=== PATIENT | male | born 1970 | race Caucasian/White ===

== ENCOUNTER 2018-06-08 20:11 | Emergency (ER) | payer SELFPAY ==
[2018-06-08 21:19] LABS: Absolute Lymphocytes (CBC) 3.7 K/uL (0.7-4.9); Absolute Monocytes 0.4 K/uL (0.1-1.3); Absolute Neutrophil 5.1 K/uL (1.8-8.0); Eosinophils % 1.4 % (0-4.4); Hematocrit 42.3 % (39.6-49.0); Lymphocytes % 39.2 % (15.3-44.8); MCH 30.7 pg (27.0-35.0); MCV 88.7 fL (80-100); MPV 9.7 fL (7.6-11.3); Monocytes % 4.7 % (3.3-12.3); RBC Red Blood Cell Count 4.77 M/uL (4.33-5.43)
[2018-06-08 21:31] LABS: Magnesium 1.9 mg/dL (1.8-2.4); Potassium 4.5 mmol/L (3.5-5.1)
[2018-06-08 21:33] LABS: Protime INR 0.98
[2018-06-08] MEDS ORDERED: DEXAMETHASONE 10 MG/ML VIAL ONE (22:09)
[2018-06-08] MEDS ORDERED: METOCLOPRAMIDE 10 MG/2mL INJ ONE (22:09)
[2018-06-08] MEDS ORDERED: DIPHENHYDRAMINE 50 MG/ML VIAL ONE (22:09)
[2018-06-08] MEDS ORDERED: NA CHLORIDE 0.9% 500 ML ONE (22:09)
[2018-06-08] MEDS ORDERED: ONDANSETRON 4 MG/2 ML VIAL ONE (22:09)
--- NOTE | 2018-06-08 22:13 | RAD REPORT ---
EXAM DESCRIPTION: CT - [id number] - 06/08/2018 9:20 pm CLINICAL HISTORY: Trip and fall, head and neck injury, dizziness, nausea COMPARISON: CT cervical spine April 2009 TECHNIQUE: Axial 5 mm thick images of the head were obtained. Axial 2 mm thick images of the cervic al spine were obtained with sagittal and coronal reconstruction images generated and reviewed. All CT scans are performed using dose optimization technique as appropriate and may include automated exposure control or mA/KV adjustment according to patient size. FINDINGS: No intracranial hemorrhage, mass, edema or acute intracranial finding. No suspicion for ac [place] infarction. No extra-axial fluid collections. Mastoid air cells and paranasal sinuses are clear. No globe or orbit abnormality seen. Cervical body height and alignment are normal. No disk space narrowing. No fracture or acute bony abn ormality. No paraspinal mass or hematoma. IMPRESSION: Negative CT head examination for acute or significant finding. Negative CT cervical spine examination for acute or significant finding.
--- NOTE | 2018-06-08 23:05 | EDPHYS ---
Physician Documentation [facility] Name: Chris Jama Age: 48 yrs Sex: Male : 1970 Arrival Date: 06/08/2018 Time: 20:16 Bed 6 Private MD: ED Physician Phong Velasco HPI: 06/08 20:30 This 48 yrs old Male presents to ER via Wheelchair with complaints of cp Dizziness, Vomiting, Headache, Fall Injury. 20:30 The patient presents with dizziness. cp 20:30 Onset: The symptoms/episode began/occurred this morning. Context: occurred at home, cp resulted from trip and fall. Patient reports striking head on corner of furniture. No LOC. Headache, dizziness and 3 episodes of vomiting since fall. Patient's baseline: Neuro: alert and fully oriented, Motor: no deficits, Ambulation: walks without assistance, Speech: normal. Historical: - Allergies: 20:28 NKDA; tl2 - Home Meds: 20:28 metformin 500 mg Oral tr24 1 tab once daily [Active]; Albuterol Inhl [Active]; tl2 20:30 lisinopril 20 mg Oral tab 1 tab once daily [Active]; tl2 - PMHx: 20:28 Asthma; Diabetes - NIDDM; Hypertension; tl2 - PSHx: 20:28 Cholecystectomy; tl2 - Immunization history:: Adult Immunizations up to date. - Social history:: Smoking status: Patient uses tobacco products, smokes one-half pack cigarettes per day. - Ebola Screening: : No symptoms or risks identified at this time. ROS: 20:35 Constitutional: Negative for body aches, chills, fever, poor PO intake. cp 20:35 Eyes: Negative for injury, pain, redness, and discharge. cp 20:35 ENT: Negative for drainage from ear(s), ear pain, sore throat, difficulty swallowing, difficulty handling secretions. 20:35 Neck: Positive for tenderness. 20:35 Cardiovascular: Negative for chest pain, edema, palpitations. 20:35 Respiratory: Negative for cough, shortness of breath, wheezing. 20:35 Abdomen/GI: Positive for nausea and vomiting, Negative for diarrhea, constipation, black/tarry stool, rectal bleeding. 20:35 Back: Negative for pain at rest, pain with movement, radiated pain. 20:35 : Negative for urinary symptoms. 20:35 MS/extremity: Positive for injury or acute deformity, paresthesias. 20:35 Skin: Positive for abrasion(s), of the right lateral scalp. 20:35 Neuro: Positive for dizziness, headache, Negative for altered mental status, loss of consciousness, seizure activity, syncope, near syncope, weakness. 20:35 All other systems are negative. Exam: 20:42 Constitutional: The patient appears in no acute distress, alert, awake, non-toxic, well cp developed, well nourished. 20:42 Head/face: Noted is abrasion(s), that are mild, of the right frontal area, tenderness, cp that is moderate, of the right frontal area. 20:42 Eyes: Periorbital structures: appear normal, Pupils: equal, round, and reactive to light and accomodation, Extraocular movements: intact throughout, Conjunctiva: normal, no exudate, no injection, Sclera: no appreciated abnormality, Lids and lashes: appear normal, bilaterally. 20:42 ENT: External ear(s): are unremarkable, Ear canal(s): are normal, clear, TM's: bulging, is not appreciated, bilaterally, dullness, bilaterally, erythema, is not appreciated, bilaterally, Nose: is normal, Mouth: Lips: moist, Oral mucosa: moist, Posterior pharynx: is normal, airway is patent, no erythema, no exudate, Voice: is normal. 20:42 Neck: C-spine: vertebral tenderness, that is mild, crepitus, is not appreciated, ROM/movement: limited range of motion, is not appreciated, nuchal rigidity, is not appreciated. 20:42 Chest/axilla: Inspection: normal, Palpation: is normal, no crepitus, no tenderness. 20:42 Cardiovascular: Rate: normal, Rhythm: regular. 20:42 Respiratory: the patient does not display signs of respiratory distress, Respirations: normal, no use of accessory muscles, no retractions, no splinting, no tachypnea, labored breathing, is not present, Breath sounds: are clear throughout, no decreased breath sounds, no stridor, no wheezing. 20:42 Abdomen/GI: Inspection: abdomen appears normal, Palpation: abdomen is soft and non-tender, in all quadrants. 20:42 Back: pain, is absent, ROM is normal, vertebral tenderness, is not appreciated. 20:42 Musculoskeletal/extremity: Exam is negative for decreased range of motion, deformity, injury. 20:42 Skin: cellulitis, is not appreciated, no rash present. 20:42 Neuro: Orientation: to person, place \T\ time. Mentation: lucid, able to follow commands, Cerebellar function: Romberg testing is negative, normal finger to nose testing, Motor: moves all fours, strength is normal, Sensation: no obvious gross deficits. Vital Signs: 20:28 BP 156 / 102; Pulse 85; Resp 18; Temp 97.7(O); Pulse Ox 95% on R/A; Weight 95.25 kg; tl2 Height 5 ft. 9 in. (175.26 cm); Pain 0/10; 21:04 BP 157 / 98; Pulse 73; Resp 16; Pulse Ox 97% on R/A; mt 21:53 BP 143 / 96; Pulse 64; Resp 16; Pulse Ox 97% on R/A; mt 23:00 BP 155 / 99; Pulse 62; Resp 14; Pulse Ox 96% ; bp 20:28 Body Mass Index 31.01 (95.25 kg, 175.26 cm) tl2 MDM: 20:21 Patient medically screened. cp 21:00 Differential diagnosis: CVA, head injury, TIA, concussion, intracranial bleed. cp 23:00 Data reviewed: vital signs, nurses notes, lab test result(s), radiologic studies, CT cp scan. 23:03 Counseling: I had a detailed discussion with the patient and/or guardian regarding: the historical points, exam findings, and any diagnostic results supporting the discharge/admit diagnosis, lab results, radiology results, to return to the emergency department if symptoms worsen or persist or if there are any questions or concerns that arise at home. 23:03 Response to treatment: the patient's symptoms have markedly improved after treatment, cp VSS. Headache and nausea improved, and as a result, I will discharge patient. 06/08 20:35 Order name: Basic Metabolic Panel; Complete Time: 21:43 cp 06/08 21:43 Interpretation: Normal except: GLUC 147; GFR 65. cp 06/08 20:35 Order name: CBC with Diff; Complete Time: 21:43 cp 06/08 21:43 Interpretation: Within normal limits. cp 06/08 20:35 Order name: CT Head C Spine; Complete Time: 22:37 cp 06/08 22:37 Interpretation: Reviewed report. 06/08 20:35 Order name: Magnesium; Complete Time: 21:43 cp 06/08 20:35 Order name: PT-INR; Complete Time: 21:43 cp 06/08 20:35 Order name: Ptt, Activated; Complete Time: 21:43 cp 06/08 20:20 Order name: Accucheck Blood Glucose; Complete Time: 20:27 cp 06/08 20:35 Order name: EKG; Complete Time: 20:36 cp 06/08 20:35 Order name: Cardiac monitoring; Complete Time: 20:47 cp 06/08 20:35 Order name: EKG - Nurse/Tech; Complete Time: 20:47 cp 06/08 20:35 Order name: IV Saline Lock; Complete Time: 21:04 cp 06/08 20:35 Order name: Labs collected and sent; Complete Time: 21:04 06/08 20:35 Order name: O2 Per Protocol; Complete Time: 20:47 cp 06/08 20:35 Order name: O2 Sat Monitoring; Complete Time: 20:47 cp Administered Medications: 22:15 Drug: Decadron - Dexamethasone 10 mg Route: IVP; Site: left antecubital; bp 23:29 Follow up: Response: Pain is decreased bp 22:15 Drug: Reglan 10 mg Route: IVP; Site: left antecubital; bp 23:29 Follow up: Response: Pain is decreased bp 22:15 Drug: Zofran 4 mg Route: IVP; Site: left antecubital; bp 23:30 Follow up: Response: Nausea is decreased bp 22:15 Drug: Benadryl 12.5 mg Route: IVP; Site: left antecubital; bp 23:30 Follow up: Response: Marked relief of symptoms bp 22:15 Drug: NS 0.9% 500 ml Route: IV; Rate: bolus; Site: left antecubital; bp 23:29 Follow up: IV Status: Completed infusion; IV Intake: 500ml bp Point of Care Testing: Blood Glucose: 20:27 Blood Glucose: 118 mg/dL; bp Ranges: Critical Glucose Levels:Adult <50 mg/dl or >400 mg/dl <40 mg/dl or >180 mg/dl Disposition: 23:45 Chart complete. 06/09 20:05 Co-signature as Attending Physician, Phong Velasco MD I agree with the assessment and wa plan of care. Disposition: 06/08/18 23:05 Discharged to Home. Impression: Contusion of unspecified part of head, Other slipping, tripping and stumbling and falls, Concussion without loss of consciousness. - Condition is Stable. - Discharge Instructions: Concussion, Adult, Head Injury, Adult, Fall Prevention in the Home. - Prescriptions for Zofran 4 mg Oral Tablet - take 1 tablet by ORAL route every 12 hours As needed; 20 tablet. - Medication Reconciliation Form, Thank You Letter, Antibiotic Education, Prescription Opioid Use form. - Follow up: Private Physician; When: 1 - 2 days; Reason: Recheck today's complaints. - Problem is new. - Symptoms have improved. Signatures: Dispatcher [employer] EDMS Remy Maxwell PA PA cp Knox, Taylor RN RN tl2 Phong Velasco MD MD wa Peltier, Brian, RN RN bp Corrections: (The following items were deleted from the chart) 06/08 20:30 20:28 Home Meds: lisinopril 20 mg Oral tab 1 tab once daily; tl2 tl2 23:30 23:05 06/08/2018 23:05 Discharged to Home. Impression: Contusion of unspecified part of bp head; Other slipping, tripping and stumbling and falls; Concussion without loss of consciousness. Condition is Stable. Forms are Medication Reconciliation Form, Thank You Letter, Antibiotic Education, Prescription Opioid Use. Follow up: Private Physician; When: 1 - 2 days; Reason: Recheck today's complaints. Problem is new. Symptoms have improved. cp
--- NOTE | 2018-06-08 23:05 | ER ---
Nurse's Notes [facility] Name: Chris Jama Age: 48 yrs Sex: Male : 1970 Arrival Date: 06/08/2018 Time: 20:16 Bed 6 Private MD: Diagnosis: Contusion of unspecified part of head;Other slipping, tripping and stumbling and falls;Concussion without loss of consciousness Presentation: 06/08 20:26 Presenting complaint: Patient states: This morning I tripped over my dog and hit my tl2 head. I've felt dizzy and nauseous since then. I also felt like my blood sugar was low and it was 83. Transition of care: patient was not received from another setting of care. Onset of symptoms was June 08, 2018 at 08:00. Risk Assessment: Do you want to hurt yourself or someone else? Patient reports no desire to harm self or others. Initial Sepsis Screen: Does the patient meet any 2 criteria? No. Patient's initial sepsis screen is negative. Does the patient have a suspected source of infection? No. Patient's initial sepsis screen is negative. Care prior to arrival: None. 20:26 Method Of Arrival: Wheelchair tl2 20:26 Acuity: JAELYN 3 tl2 Triage Assessment: 20:28 General: Appears in no apparent distress. uncomfortable, Behavior is calm, cooperative, tl2 appropriate for age. Pain: Denies pain. Neuro: Level of Consciousness is awake, alert, obeys commands, Reports blurred vision dizziness. Historical: - Allergies: 20:28 NKDA; tl2 - Home Meds: 20:28 metformin 500 mg Oral tr24 1 tab once daily [Active]; Albuterol Inhl [Active]; tl2 20:30 lisinopril 20 mg Oral tab 1 tab once daily [Active]; tl2 - PMHx: 20:28 Asthma; Diabetes - NIDDM; Hypertension; tl2 - PSHx: 20:28 Cholecystectomy; tl2 - Immunization history:: Adult Immunizations up to date. - Social history:: Smoking status: Patient uses tobacco products, smokes one-half pack cigarettes per day. - Ebola Screening: : No symptoms or risks identified at this time. Screenin:29 Abuse screen: Denies threats or abuse. Nutritional screening: No deficits noted. tl2 Tuberculosis screening: No symptoms or risk factors identified. Fall Risk Fall in past 12 months (25 points). Assessment: 20:30 General: Appears in no apparent distress. comfortable, Behavior is calm, cooperative, bp appropriate for age. Pain: Complains of pain in head. Neuro: Level of Consciousness is awake, alert, obeys commands, Oriented to person, place, time, situation, Appropriate for age. Cardiovascular: No deficits noted. Respiratory: Airway is patent Respiratory effort is even, unlabored, Respiratory pattern is regular, symmetrical. GI: Reports nausea. : No signs and/or symptoms were reported regarding the genitourinary system. EENT: No deficits noted. Derm: No deficits noted. 21:10 Reassessment: PT TO CT WITH STEWARD/STEWARDESS SECOND. bp 23:15 Reassessment: PT D/C HOME AMBULATORY WITH FAMILY, DX WITH CONCUSSION WITHOUT LOSS OF bp CONSCIOUSNESS. Vital Signs: 20:28 BP 156 / 102; Pulse 85; Resp 18; Temp 97.7(O); Pulse Ox 95% on R/A; Weight 95.25 kg; tl2 Height 5 ft. 9 in. (175.26 cm); Pain 0/10; 21:04 BP 157 / 98; Pulse 73; Resp 16; Pulse Ox 97% on R/A; mt 21:53 BP 143 / 96; Pulse 64; Resp 16; Pulse Ox 97% on R/A; mt 23:00 BP 155 / 99; Pulse 62; Resp 14; Pulse Ox 96% ; bp 20:28 Body Mass Index 31.01 (95.25 kg, 175.26 cm) tl2 ED Course: 20:16 Patient arrived in ED. es 20:20 Remy Maxwell PA is PHCP. cp 20:20 Phong Velasco MD is Attending Physician. cp 20:24 Leopoldo Gallegos, VIVIANA is Primary Nurse. bp 20:28 Triage completed. tl2 20:28 Arm band placed on right wrist. tl2 20:29 Patient has correct armband on for positive identification. Bed in low position. Call tl2 light in reach. Side rails up X 1. 21:03 Inserted saline lock: 22 gauge in left hand, using aseptic technique. Blood collected. mt 21:[address] via stretcher. nj 21:20 CT Head C Spine In Process Unspecified. EDMS 22:19 Inserted saline lock: 22 gauge in left antecubital area, using aseptic technique. mt 23:29 No provider procedures requiring assistance completed. IV discontinued, intact, bp bleeding controlled, No redness/swelling at site. Pressure dressing applied. Administered Medications: 22:15 Drug: Decadron - Dexamethasone 10 mg Route: IVP; Site: left antecubital; bp 23:29 Follow up: Response: Pain is decreased bp 22:15 Drug: Reglan 10 mg Route: IVP; Site: left antecubital; bp 23:29 Follow up: Response: Pain is decreased bp 22:15 Drug: Zofran 4 mg Route: IVP; Site: left antecubital; bp 23:30 Follow up: Response: Nausea is decreased bp 22:15 Drug: Benadryl 12.5 mg Route: IVP; Site: left antecubital; bp 23:30 Follow up: Response: Marked relief of symptoms bp 22:15 Drug: NS 0.9% 500 ml Route: IV; Rate: bolus; Site: left antecubital; bp 23:29 Follow up: IV Status: Completed infusion; IV Intake: 500ml bp Point of Care Testing: Blood Glucose: 20:27 Blood Glucose: 118 mg/dL; bp Ranges: Intake: 23:29 IV: 500ml; Total: 500ml. bp Outcome: 23:05 Discharge ordered by MD. cp 23:28 Discharged to home ambulatory, with family. bp 23:28 Condition: stable 23:28 Discharge instructions given to patient, Instructed on discharge instructions, follow up and referral plans. medication usage, Demonstrated understanding of instructions, follow-up care, medications, Prescriptions given X 1. 23:30 Patient left the ED. bp Signatures: Dispatcher [employer] Mable Lim Corey, PA PA cp Knox, Taylor, RN RN tl2 Gutierrez Montenegro [facility] Leopoldo Gallegos RN RN bp Corrections: (The following items were deleted from the chart) 20:30 20:28 Home Meds: lisinopril 20 mg Oral tab 1 tab once daily; tl2 tl2
[2018-06-08 23:46] VITALS: TEMP 97.7
[2018-06-08 23:53] VITALS: BP 155/99; O2SAT 96
--- NOTE | 2018-06-09 08:06 | EKG ---
Test Date: 2018-06-08 Test Time: 20:42:32 Noc Technician: SARAI MEASUREMENT RESULTS: Intervals: Rate: 74 DE: 164 QRSD: 110 QT: 398 QTc: 441 [place]: P: 36 DE: 164 QRS: 31 T: 106 INTERPRETIVE STATEMENTS: Normal sinus rhythm Cannot rule out Anterior infarct, age undetermined ST & T wave abnormality, consider lateral ischemia Abnormal ECG Compared to ECG 01/22/2018 01:56:11 ST (T wave) deviation now present Possible ischemia now present Myocardial infarct finding still present Electronically Signed On 06-09-18 08:03:18 CDT by Reynaldo Olivas
== END 2018-06-08 23:30 | disposition home or self-care (01) ==
LOC: ER 20:11
DX: S00.93XA Contusion of unspecified part of head, initial encounter (principal); W01.190A Fall on same level from slipping, tripping and stumbling with subsequent striking against furniture, initial encounter; Y93.01 Activity, walking, marching and hiking; Y92.019 Unspecified place in single-family (private) house as the place of occurrence of the external cause; K21.9 Gastro-esophageal reflux disease without esophagitis; E11.9 Type 2 diabetes mellitus without complications; Z79.84 Long term (current) use of oral hypoglycemic drugs; I10 Essential (primary) hypertension
CPT/HCPCS: 36415; 70450; 72125; 80048; 82962; 83735; 85025; 85610; 85730; 93005; 96361; 96374; 96375; 99284; J1100; J2405; J2765

== ENCOUNTER 2018-07-11 11:14 | Emergency (ER) | payer SELFPAY ==
[2018-07-11] MEDS ORDERED: INSULIN -REGULAR HUMAN 50 UNIT/0.5 ML ML ONE ×2 (11:41→11:42)
[2018-07-11] MEDS ORDERED: ONDANSETRON 4 MG/2 ML VIAL ONE (11:42)
[2018-07-11] MEDS ORDERED: NA CHLORIDE 0.9% 2,000 ML ONE (11:42)
[2018-07-11] MEDS ORDERED: NA CHLORIDE 0.9% 1,000 ML ONE (11:42)
[2018-07-11 12:05] LABS: Absolute Monocytes 0.4 K/uL (0.1-1.3); Absolute Neutrophil 3.9 K/uL (1.8-8.0); Basophils % 0.9 % (0-1.3); Eosinophils % 1.7 % (0-4.4); Hematocrit 38.4 % (39.6-49.0); Lymphocytes % 40.3 % (15.3-44.8); MCH 30.5 pg (27.0-35.0); MCV 88.1 fL (80-100); MPV 9.3 fL (7.6-11.3); Monocytes % 5.8 % (3.3-12.3); RBC Red Blood Cell Count 4.36 M/uL (4.33-5.43)
--- NOTE | 2018-07-11 12:08 | RAD REPORT ---
EXAM DESCRIPTION: RAD - Chest Single View - 07/11/2018 12:01 pm CLINICAL HISTORY: COUGH Chest pain. COMPARISON: Chest Single View dated 01/21/2018; Chest Single View dated 07/04/2017; Chest Single View d ated 05/30/2016; Chest Single View dated 02/26/2016 FINDINGS: Portable technique limits examination quality. The lungs are grossly clear. The heart is normal in size. No displaced fractures. IMPRESSION: No acute intrathoracic process suspected.
[2018-07-11 12:09] LABS: Protime INR 0.97
[2018-07-11 12:29] LABS: ALT/SGPT 81 U/L (12-78); AST/SGOT 40 U/L (15-37); Albumin 4.2 g/dL (3.4-5.0); Alkaline Phosphatase 90 U/L (45-117); BUN Blood Urea Nitrogen 13 mg/dL (7-18); Bicarbonate 25 mmol/L (21-32); Bilirubin Direct 0.1 mg/dL (0-0.2); Bilirubin Total 0.5 mg/dL (0.2-1.0); CKMB Creatine Kinase MB < 1.0 ng/mL (0.3-3.6); Creatine Phosphokinase 91 U/L (39-308); Glucose Level 274 mg/dL (74-106); Lipase 220 U/L (73-393); Magnesium 1.8 mg/dL (1.8-2.4); NT PRO-BNP 93 pg/mL (<125); Protein, Total 7.4 g/dL (6.4-8.2); Sodium Level 134 mmol/L (136-145)
[2018-07-11] MEDS ORDERED: METFORMIN HCL 500 MG TAB ONE (12:30)
--- NOTE | 2018-07-11 12:44 | EKG ---
Test Date: 2018-07-11 Test Time: 12:21:03 Postbed Stitcher: GUERITA MEASUREMENT RESULTS: Intervals: Rate: 60 [place]: 164 QRSD: 114 QT: 390 QTc: 390 [place]: P: 15 [place]: 164 QRS: 26 T: 120 INTERPRETIVE STATEMENTS: Normal sinus rhythm Cannot rule out Anterior infarct, age undetermined T wave abnormality, consider lateral ischemia Abnormal ECG Compared to ECG 06/08/2018 20:42:32 T-wave abnormality now present ST (T wave) deviation no longer present Myocardial infarct finding still present Possible ischemia still present Electronically Signed On 07-11-18 12:43:55 CDT by Reynaldo Olivas
--- NOTE | 2018-07-11 12:48 | ER ---
Nurse's Notes [facility] Name: Chris Jama Age: 48 yrs Sex: Male : 1970 Arrival Date: 07/11/2018 Time: 11:15 Bed 5 Private MD: None, None Diagnosis: Type 2 diabetes mellitus;Vomiting Presentation: 07/11 11:31 Presenting complaint: Patient states: dizziness, nausea and vomiting that began this morning. Pt checked his blood sugar at 100 which was 400. Pt also reports he has been out of his Metformin for a few days and he typically has these symptoms twice a month which he comes to this ER for treatment. Transition of care: patient was not received from another setting of care. Onset of symptoms was July 11, 2018. Risk Assessment: Do you want to hurt yourself or someone else? Patient reports no desire to harm self or others. Initial Sepsis Screen: Does the patient meet any 2 criteria? No. Patient's initial sepsis screen is negative. Does the patient have a suspected source of infection? No. Patient's initial sepsis screen is negative. Care prior to arrival: None. 11:31 Method Of Arrival: Ambulatory 11:31 Acuity: JAELYN 3 ss Historical: - Allergies: 11:33 NKDA; ss - PMHx: 11:33 Asthma; Diabetes - NIDDM; Hypertension; ss - PSHx: 11:33 Cholecystectomy; ss - Immunization history:: Adult Immunizations up to date. - Social history:: Smoking status: Patient uses tobacco products, smokes one-half pack cigarettes per day. - Ebola Screening: : Patient negative for fever greater than or equal to 101.5 degrees Fahrenheit, and additional compatible Ebola Virus Disease symptoms Patient denies exposure to infectious person Patient denies travel to an Ebola-affected area in the 21 days before illness onset No symptoms or risks identified at this time. Screenin:45 Abuse screen: Denies threats or abuse. Denies injuries from another. Nutritional hb screening: No deficits noted. Tuberculosis screening: No symptoms or risk factors identified. Fall Risk None identified. Assessment: 12:00 General: Appears in no apparent distress. comfortable, well groomed, well developed, sg well nourished, Behavior is calm, cooperative, appropriate for age. Pain: Complains of pain in abdomen Pain does not radiate. Quality of pain is described as crampy. Neuro: Level of Consciousness is awake, alert, obeys commands, Oriented to person, place, time, situation, [employer] Forms are equal bilaterally Speech is normal, Facial symmetry appears normal. Cardiovascular: Heart tones S1 S2 present Capillary refill is brisk in bilateral fingers Patient's skin is warm and dry. Chest pain is denied. Respiratory: Airway is patent Respiratory effort is even, unlabored, Respiratory pattern is regular, symmetrical. GI: Abdomen is round non-distended, obese, Reports lower abdominal pain, upper abdominal pain, nausea. : No signs and/or symptoms were reported regarding the genitourinary system. EENT: No signs and/or symptoms were reported regarding the EENT system. Derm: Skin is pink, warm \T\ dry. Musculoskeletal: No signs and/or symptoms reported regarding the musculoskeletal system. 13:00 Reassessment: Patient appears in no apparent distress at this time. Patient and/or hb family updated on plan of care and expected duration. Pain level reassessed. Patient is alert, oriented x 3, equal unlabored respirations, skin warm/dry/pink. Vital Signs: 11:30 BP 176 / 89; Pulse 77; Resp 16; Temp 97.6(TE); Pulse Ox 98% on R/A; Weight 97.52 kg; ss Height 5 ft. 9 in. (175.26 cm); Pain 9/10; 12:30 BP 156 / 86; Pulse 74; Resp 16; Pulse Ox 100% on R/A; hb 11:30 Body Mass Index 31.75 (97.52 kg, 175.26 cm) ss ED Course: 11:15 Patient arrived in ED. sb2 11:16 None, None is Private Physician. sb2 11:27 Remy Treviño MD is Attending Physician. tico 11:30 Arm band placed on right wrist. ss 11:32 Triage completed. ss 11:45 Patient has correct armband on for positive identification. Placed in gown. Bed in low hb position. Call light in reach. Side rails up X 1. 11:50 Missed attempt(s): 20 gauge in right wrist. Bleeding controlled, band aid applied, sg catheter tip intact. 11:56 Santos Montaño, VIVIANA is Primary Nurse. sg 11:57 Inserted saline lock: 20 gauge in right forearm, using aseptic technique. Blood ss collected. 11:57 Initial lab(s) drawn, by ED staff, sent to lab. sg 12:01 XRAY Chest (1 view) In Process Unspecified. EDMS 12:32 EKG done, by occupational therapy technician. reviewed by Remy Treviño MD. at1 13:12 No provider procedures requiring assistance completed. IV discontinued, intact, hb bleeding controlled, No redness/swelling at site. Pressure dressing applied. Administered Medications: 11:57 Drug: NS 0.9% 1000 ml Route: IV; Rate: 1 bolus; Site: right forearm; sg 13:11 Follow up: Response: No adverse reaction; IV Status: Completed infusion hb 11:57 Drug: NS 0.9% 1000 ml Route: IV; Rate: 1 bolus; Site: right forearm; sg 13:11 Follow up: Response: No adverse reaction; IV Status: Completed infusion hb 11:57 Drug: Zofran 4 mg Route: IVP; Site: right wrist; sg 12:30 Follow up: Response: No adverse reaction hb 11:58 Drug: Insulin Regular Human 5 units {Co-Signature: hb (Amy Beth RN).} Route: IVP; sg Site: right forearm; 12:30 Follow up: Response: No adverse reaction; Blood sugar is lowered hb 12:04 Not Given (Other Intervention Used): Insulin Regular Human 5 units Sub-Q once sg 12:32 Drug: metFORMIN 1000 mg Route: PO; hb 13:11 Follow up: Response: No adverse reaction hb Point of Care Testing: Blood Glucose: 11:30 Blood Glucose: 298 mg/dL; Ranges: Outcome: 12:48 Discharge ordered by . tico 13:12 Discharged to home ambulatory. hb 13:12 Condition: stable 13:12 Discharge instructions given to patient, Instructed on discharge instructions, follow up and referral plans. medication usage, Demonstrated understanding of instructions, follow-up care, medications, Prescriptions given X 2. 13:13 Patient left the ED. hb Signatures: Dispatcher [employer] EDMS Santos Montaño, Remy Davis RN, MD MD cha Smirch, Shelby RN RN Yoly Maxwell, ring sorter EKG Tat1 Amy Beth RN RN hb Lesly Lou sb2 Amy Beth RN hb
--- NOTE | 2018-07-11 12:48 | EDPHYS ---
Physician Documentation [facility] Name: Chris Jama Age: 48 yrs Sex: Male : 1970 Arrival Date: 07/11/2018 Time: 11:15 Bed 5 Private MD: None, None ED Physician Remy Treviño HPI: 07/11 11:33 This 48 yrs old Male presents to ER via Ambulatory with complaints of High tico Blood Sugar. 11:33 The patient or guardian reports generalized weakness, heart racing. Onset: The tico symptoms/episode began/occurred 3 day(s) ago. Associated signs and symptoms: Pertinent positives: nausea, vomiting. Current symptoms: In the emergency department the patient's symptoms are unchanged from the initial presentation, despite home interventions. The patient has experienced similar episodes in the past, several times. Historical: - Allergies: 11:33 NKDA; ss - PMHx: 11:33 Asthma; Diabetes - NIDDM; Hypertension; ss - PSHx: 11:33 Cholecystectomy; ss - Immunization history:: Adult Immunizations up to date. - Social history:: Smoking status: Patient uses tobacco products, smokes one-half pack cigarettes per day. - Ebola Screening: : Patient negative for fever greater than or equal to 101.5 degrees Fahrenheit, and additional compatible Ebola Virus Disease symptoms Patient denies exposure to infectious person Patient denies travel to an Ebola-affected area in the 21 days before illness onset No symptoms or risks identified at this time. ROS: 11:35 Constitutional: Negative for fever, chills, and weight loss, Eyes: Negative for injury, tico pain, redness, and discharge, ENT: Negative for injury, pain, and discharge, Neck: Negative for injury, pain, and swelling, Cardiovascular: Negative for chest pain, palpitations, and edema, Respiratory: Negative for shortness of breath, cough, wheezing, and pleuritic chest pain, Back: Negative for injury and pain, : Negative for injury, bleeding, discharge, and swelling, MS/Extremity: Negative for injury and deformity, Skin: Negative for injury, rash, and discoloration, Neuro: Negative for headache, weakness, numbness, tingling, and seizure, Psych: Negative for depression, anxiety, suicide ideation, homicidal ideation, and hallucinations, Allergy/Immunology: Negative for hives, rash, and allergies, Hematologic/Lymphatic: Negative for swollen nodes, abnormal bleeding, and unusual bruising. 11:35 Abdomen/GI: Positive for nausea and vomiting. 11:35 Endocrine: Positive for polydipsia, polyuria. Exam: 11:35 Constitutional: This is a well developed, well nourished patient who is awake, alert, tico and in no acute distress. Head/Face: Normocephalic, atraumatic. Eyes: Pupils equal round and reactive to light, extra-ocular motions intact. Lids and lashes normal. Conjunctiva and sclera are non-icteric and not injected. Cornea within normal limits. Periorbital areas with no swelling, redness, or edema. ENT: Nares patent. No nasal discharge, no septal abnormalities noted. Tympanic membranes are normal and external auditory canals are clear. Oropharynx with no redness, swelling, or masses, exudates, or evidence of obstruction, uvula midline. Mucous membranes moist. Neck: Trachea midline, no thyromegaly or masses palpated, and no cervical lymphadenopathy. Supple, full range of motion without nuchal rigidity, or vertebral point tenderness. No Meningismus. Chest/axilla: Normal chest wall appearance and motion. Nontender with no deformity. No lesions are appreciated. Cardiovascular: Regular rate and rhythm with a normal S1 and S2. No gallops, murmurs, or rubs. Normal PMI, no JVD. No pulse deficits. Respiratory: Lungs have equal breath sounds bilaterally, clear to auscultation and percussion. No rales, rhonchi or wheezes noted. No increased work of breathing, no retractions or nasal flaring. Abdomen/GI: Soft, non-tender, with normal bowel sounds. No distension or tympany. No guarding or rebound. No evidence of tenderness throughout. Back: No spinal tenderness. No costovertebral tenderness. Full range of motion. Male : Normal genitalia with no discharge or lesions. Skin: Warm, dry with normal turgor. Normal color with no rashes, no lesions, and no evidence of cellulitis. MS/ Extremity: Pulses equal, no cyanosis. Neurovascular intact. Full, normal range of motion. Neuro: Awake and alert, GCS 15, oriented to person, place, time, and situation. Cranial nerves II-XII grossly intact. Motor strength 5/5 in all extremities. Sensory grossly intact. Cerebellar exam normal. Normal gait. Psych: Awake, alert, with orientation to person, place and time. Behavior, mood, and affect are within normal limits. Vital Signs: 11:30 BP 176 / 89; Pulse 77; Resp 16; Temp 97.6(TE); Pulse Ox 98% on R/A; Weight 97.52 kg; ss Height 5 ft. 9 in. (175.26 cm); Pain 9/10; 12:30 BP 156 / 86; Pulse 74; Resp 16; Pulse Ox 100% on R/A; hb 11:30 Body Mass Index 31.75 (97.52 kg, 175.26 cm) ss MDM: 11:27 Patient medically screened. [facility] 11:37 Data reviewed: vital signs, nurses notes, lab test result(s), EKG, radiologic studies, tico plain films. 07/11 11:32 Order name: Basic Metabolic Panel; Complete Time: 12:47 [facility] 07/11 11:32 Order name: CBC with Diff; Complete Time: 12:24 [facility] 07/11 11:32 Order name: Ckmb; Complete Time: 12:47 [facility] 07/11 11:32 Order name: CPK; Complete Time: 12:47 [facility] 07/11 11:32 Order name: LFT's; Complete Time: 12:47 [facility] 07/11 11:32 Order name: Magnesium; Complete Time: 12:47 [facility] 07/11 11:32 Order name: NT PRO-BNP; Complete Time: 12:47 [facility] 07/11 11:32 Order name: PT-INR; Complete Time: 12:24 [facility] 07/11 11:32 Order name: Ptt, Activated; Complete Time: 12:24 [facility] 07/11 11:32 Order name: Troponin (emerg Dept Use Only); Complete Time: 12:47 [facility] 07/11 11:32 Order name: XRAY Chest (1 view); Complete Time: 12:24 [facility] 07/11 11:32 Order name: Lipase; Complete Time: 12:47 [facility] 07/11 12:10 Order name: Urine Dipstick--Ancillary (enter results) 07/11 12:30 Order name: Glucose, Ancillary Testing; Complete Time: 12:47 [facility] 07/11 11:32 Order name: EKG; Complete Time: 11:33 [facility] 07/11 11:32 Order name: Cardiac monitoring; Complete Time: 11:58 [facility] 07/11 11:32 Order name: EKG - Nurse/Tech; Complete Time: 12:23 [facility] 07/11 11:32 Order name: IV Saline Lock; Complete Time: 11:57 [facility] 07/11 11:32 Order name: Labs collected and sent; Complete Time: 11:57 [facility] 07/11 11:32 Order name: O2 Per Protocol; Complete Time: 12:00 [facility] 07/11 11:32 Order name: O2 Sat Monitoring; Complete Time: 12:00 [facility] 07/11 11:32 Order name: Urine Dipstick-Ancillary (obtain specimen); Complete Time: 12:23 [facility] Administered Medications: 11:57 Drug: NS 0.9% 1000 ml Route: IV; Rate: 1 bolus; Site: right forearm; sg 13:11 Follow up: Response: No adverse reaction; IV Status: Completed infusion hb 11:57 Drug: NS 0.9% 1000 ml Route: IV; Rate: 1 bolus; Site: right forearm; sg 13:11 Follow up: Response: No adverse reaction; IV Status: Completed infusion hb 11:57 Drug: Zofran 4 mg Route: IVP; Site: right wrist; sg 12:30 Follow up: Response: No adverse reaction hb 11:58 Drug: Insulin Regular Human 5 units {Co-Signature: hb (Amy Beth RN).} Route: IVP; sg Site: right forearm; 12:30 Follow up: Response: No adverse reaction; Blood sugar is lowered hb 12:04 Not Given (Other Intervention Used): Insulin Regular Human 5 units Sub-Q once sg 12:32 Drug: metFORMIN 1000 mg Route: PO; hb 13:11 Follow up: Response: No adverse reaction hb Point of Care Testing: Blood Glucose: 11:30 Blood Glucose: 298 mg/dL; ss Ranges: Critical Glucose Levels:Adult <50 mg/dl or >400 mg/dl <40 mg/dl or >180 mg/dl Disposition: 07/11/18 12:48 Discharged to Home. Impression: Type 2 diabetes mellitus, Vomiting. - Condition is Stable. - Discharge Instructions: Type 2 Diabetes Mellitus, Diagnosis, Adult, Nausea and Vomiting, Adult, Nausea and Vomiting, Adult, Onak-iw-Shpt, Type 2 Diabetes Mellitus, Diagnosis, Adult, Rujk-fy-Ualx. - Prescriptions for Zofran 4 mg Oral Tablet - take 1 tablet by ORAL route every 12 hours As needed; 20 tablet. Metformin 850 mg Oral Tablet - take 1 tablet by ORAL route 2 times per day with morning and evening meals; 20 tablet. - Medication Reconciliation Form, Thank You Letter, Antibiotic Education, Prescription Opioid Use form. - Follow up: Private Physician; When: 2 - 3 days; Reason: Recheck today's complaints, Continuance of care, Re-evaluation by your physician. - Problem is new. - Symptoms have improved. Signatures: Dispatcher [employer] EDSantos Patel RN RN sg Anderson, Corey, MD MD cha Smirch, Shelby, RN RN Amy Beth RN RN Amy Beth RN Corrections: (The following items were deleted from the chart) 13:13 12:48 07/11/2018 12:48 Discharged to Home. Impression: Type 2 diabetes mellitus; hb Vomiting. Condition is Stable. Discharge Instructions: Type 2 Diabetes Mellitus, Diagnosis, Adult, Nausea and Vomiting, Adult, Nausea and Vomiting, Adult, [id number], Type 2 Diabetes Mellitus, Diagnosis, Adult, Usxv-ef-Llob. Prescriptions for Zofran 4 mg Oral Tablet - take 1 tablet by ORAL route every 12 hours As needed; 20 tablet, Metformin 850 mg Oral Tablet - take 1 tablet by ORAL route 2 times per day with morning and evening meals; 20 tablet. and Forms are Medication Reconciliation Form, Thank You Letter, Antibiotic Education, Prescription Opioid Use. Follow up: Private Physician; When: 2 - 3 days; Reason: Recheck today's complaints, Continuance of care, Re-evaluation by your physician. Problem is new. Symptoms have improved. tico
[2018-07-11 13:21] VITALS: TEMP 97.6
[2018-07-11 13:22] VITALS: BP 156/86; O2SAT 100
[2018-07-11 16:01] LABS: Urine Blood NEGATIVE (NEG); Urine Glucose 1+ (NEG); Urine Protein NEGATIVE (NEG); Urine pH 5.5 (5.0-7.0)
== END 2018-07-11 13:13 | disposition home or self-care (01) ==
LOC: ER 11:14
DX: E11.65 Type 2 diabetes mellitus with hyperglycemia (principal); F17.210 Nicotine dependence, cigarettes, uncomplicated
CPT/HCPCS: 36415; 71045; 80048; 80076; 81003; 82550; 82553; 82962; 83690; 83735; 83880; 84484; 85025; 85610; 85730; 93005; 99284; J2405; J7030

== ENCOUNTER 2018-12-29 11:11 | Emergency (ER) | payer OTHER, SELFPAY ==
[2018-12-29] MEDS ORDERED: IPRATROPIUM BROM 0.5MG/2.5ML ONE (11:56)
[2018-12-29] MEDS ORDERED: METHYLPREDNISOLONE 125 MG INJ ONE (11:56)
[2018-12-29] MEDS ORDERED: ALBUTEROL 2.5 MG/3 ML NEB SOL ONE (11:56)
[2018-12-29 12:13] LABS: Absolute Monocytes 0.6 K/uL (0.1-1.3); Absolute Neutrophil 10.5 K/uL (1.8-8.0); Basophils % 0.4 % (0-1.3); Eosinophils % 0.6 % (0-4.4); Hematocrit 39.7 % (39.6-49.0); Lymphocytes % 15.1 % (15.3-44.8); Monocytes % 4.8 % (3.3-12.3); RBC Red Blood Cell Count 4.52 M/uL (4.33-5.43)
[2018-12-29 12:32] LABS: Albumin 4.1 g/dL (3.4-5.0); Bilirubin Total 0.8 mg/dL (0.2-1.0); Potassium 3.9 mmol/L (3.5-5.1); Protein, Total 7.7 g/dL (6.4-8.2)
--- NOTE | 2018-12-29 12:43 | RAD REPORT ---
EXAM DESCRIPTION: Jesus Starkey (2 Views)12/29/2018 12:25 pm CLINICAL HISTORY: Cough COMPARISON: January 2018 FINDINGS: The lungs appear clear of acute infiltrate. The heart is normal size IMPRESSION: No acute abnormalities displayed
--- NOTE | 2018-12-29 14:09 | EDPHYS ---
Physician Documentation [facility] Name: Chris Jama Age: 48 yrs Sex: Male : 1970 Arrival Date: 12/29/2018 Time: 11:18 Bed 14 Private MD: ED Physician Noam Taylor HPI: 12/29 12:00 This 48 yrs old Male presents to ER via EMS with complaints of Non-Productive pm1 Cough. 12:00 The patient or guardian reports cough, with no sputum. pm1 12:00 Onset: The symptoms/episode began/occurred 1 week(s) ago. Severity of symptoms: in the pm1 emergency department the symptoms are actually worse, shortness of breath is present in the emergency department. Modifying factors: The symptoms are alleviated by nothing, the symptoms are aggravated by nothing. Associated signs and symptoms: Pertinent positives: sore throat, vomiting, Pertinent negatives: chest pain, diarrhea, fever. The patient has experienced similar episodes in the past, a few times. The patient has not recently seen a physician. Historical: - Allergies: 11:21 NKDA; jl7 - Home Meds: 11:21 Albuterol Inhl [Active]; lisinopril 20 mg Oral tab 1 tab once daily [Active]; metformin jl7 500 mg Oral tr24 1 tab once daily [Active]; - PMHx: 11:21 Asthma; Diabetes - NIDDM; Hypertension; jl7 - Immunization history:: Adult Immunizations up to date. - Social history:: Smoking status: Patient uses tobacco products, 3 cigarettes/day. - Ebola Screening: : No symptoms or risks identified at this time. ROS: 12:00 Constitutional: Negative for fever, chills, and weight loss, Eyes: Negative for injury, pm1 pain, redness, and discharge. 12:00 Neck: Negative for injury, pain, and swelling, Cardiovascular: Negative for chest pain, palpitations, and edema. 12:00 Abdomen/GI: Negative for abdominal pain, nausea, vomiting, diarrhea, and constipation, Back: Negative for injury and pain, : Negative for injury, bleeding, discharge, and swelling, MS/Extremity: Negative for injury and deformity, Skin: Negative for injury, rash, and discoloration, Neuro: Negative for headache, weakness, numbness, tingling, and seizure. 12:00 ENT: Positive for sore throat, Negative for ear pain, dental pain. 12:00 Respiratory: Positive for cough, shortness of breath, wheezing. Exam: 12:00 Constitutional: This is a well developed, well nourished patient who is awake, alert, pm1 and in no acute distress. Head/Face: Normocephalic, atraumatic. Eyes: Pupils equal round and reactive to light, extra-ocular motions intact. Lids and lashes normal. Conjunctiva and sclera are non-icteric and not injected. Cornea within normal limits. Periorbital areas with no swelling, redness, or edema. ENT: Nares patent. No nasal discharge, no septal abnormalities noted. Tympanic membranes are normal and external auditory canals are clear. Oropharynx with no redness, swelling, or masses, exudates, or evidence of obstruction, uvula midline. Mucous membranes moist. Neck: Trachea midline, no thyromegaly or masses palpated, and no cervical lymphadenopathy. Supple, full range of motion without nuchal rigidity, or vertebral point tenderness. No Meningismus. Chest/axilla: Normal chest wall appearance and motion. Nontender with no deformity. No lesions are appreciated. Cardiovascular: Regular rate and rhythm with a normal S1 and S2. No gallops, murmurs, or rubs. Normal PMI, no JVD. No pulse deficits. 12:00 Abdomen/GI: Soft, non-tender, with normal bowel sounds. No distension or tympany. No guarding or rebound. No evidence of tenderness throughout. Back: No spinal tenderness. No costovertebral tenderness. Full range of motion. Skin: Warm, dry with normal turgor. Normal color with no rashes, no lesions, and no evidence of cellulitis. MS/ Extremity: Pulses equal, no cyanosis. Neurovascular intact. Full, normal range of motion. 12:00 Respiratory: the patient does not display signs of respiratory distress, Respirations: normal, Breath sounds: wheezing: is heard diffusely. 12:00 Neuro: Orientation: is normal, Motor: is normal, moves all fours. Vital Signs: 11:21 BP 152 / 80; Pulse 89; Resp 24 S; Temp 98(O); Pulse Ox 97% on R/A; Weight 97.52 kg (R); jl7 Height 5 ft. 9 in. (175.26 cm); Pain 9/10; 13:01 BP 141 / 82; Pulse 101; Resp 16; Pulse Ox 96% ; jl7 14:24 BP 135 / 88; Pulse 94; Resp 16 S; Pulse Ox 97% on R/A; Pain 6/10; jl7 11:21 Body Mass Index 31.75 (97.52 kg, 175.26 cm) jl7 MDM: 11:30 Patient medically screened. pm1 11:35 Data reviewed: vital signs. Data interpreted: Pulse oximetry: on room air is 97 %. pm1 Interpretation: normal. 14:07 Counseling: I had a detailed discussion with the patient and/or guardian regarding: the pm1 historical points, exam findings, and any diagnostic results supporting the discharge/admit diagnosis, lab results, radiology results, the need for outpatient follow up, to return to the emergency department if symptoms worsen or persist or if there are any questions or concerns that arise at home. 12/29 11:38 Order name: CBC with Diff; Complete Time: 12:18 pm1 12/29 11:38 Order name: CMP; Complete Time: 12:39 pm1 12/29 11:38 Order name: Chest Pa And Lat (2 Views) XRAY; Complete Time: 12:54 pm1 12/29 11:38 Order name: IV Saline Lock; Complete Time: 11:58 pm1 Administered Medications: 11:57 Drug: SOLU-Medrol 125 mg Route: IVP; Site: right antecubital; 7 12:30 Follow up: Response: No adverse reaction; No change in condition 7 11:57 Drug: Albuterol - atroVENT (3:1) (2.5 mg - 0.5 mg) 3 ml Route: Nebulizer; 7 12:30 Follow up: Response: No adverse reaction; Wheezing unchanged jl7 13:04 Drug: Tylenol 1000 mg Route: PO; jl7 14:00 Follow up: Response: No adverse reaction; Pain is decreased jl7 Disposition: 12/29/18 14:08 Discharged to Home. Impression: Bronchitis, not specified as acute or chronic. - Condition is Stable. - Discharge Instructions: Acute Bronchitis, Adult, How to Use an Inhaler. - Prescriptions for Medrol (Jayjay) 4 mg Oral Tablets, Dose Pack - take 1 tablet by ORAL route as directed - follow package instructions; 1 packet. Albuterol Sulfate 90 mcg/actuation - inhale 1-2 puff by INHALATION route every 4-6 hours; 1 Inhaler. Guaifenesin AC 10- 100 mg/5 mL Oral Liquid - take 10 milliliter by ORAL route every 4 hours As needed; 240 milliliter. - Medication Reconciliation Form, Thank You Letter, Antibiotic Education, Prescription Opioid Use form. - Follow up: Emergency Department; When: As needed; Reason: Worsening of condition. Follow up: Private Physician; When: 2 - 3 days; Reason: Recheck today's complaints, Continuance of care, Re-evaluation by your physician. - Problem is new. - Symptoms have improved. Addendum: 01/01/2019 07:47 Co-signature as Attending Physician, Noam Taylor MD I agree with the assessment and k dr plan of care. Signatures: Dispatcher [employer] EDNE Noam Taylor MD MD kdr Jonh Kessler, COMPUTER LANGUAGE CODER COMPUTER LANGUAGE CODER pm1 Bee Zhang RN RN jl7 Corrections: (The following items were deleted from the chart) 12/29 14:28 14:08 12/29/2018 14:08 Discharged to Home. Impression: Bronchitis, not specified as jl7 acute or chronic. Condition is Stable. Forms are Medication Reconciliation Form, Thank You Letter, Antibiotic Education, Prescription Opioid Use. Follow up: Emergency Department; When: As needed; Reason: Worsening of condition. Follow up: Private Physician; When: 2 - 3 days; Reason: Recheck today's complaints, Continuance of care, Re-evaluation by your physician. Problem is new. Symptoms have improved. pm1
--- NOTE | 2018-12-29 14:09 | ER ---
Nurse's Notes [facility] Name: Chris Jama Age: 48 yrs Sex: Male : 1970 Arrival Date: 12/29/2018 Time: 11:18 Bed 14 Private MD: Diagnosis: Bronchitis, not specified as acute or chronic Presentation: 12/29 11:18 Presenting complaint: EMS states: Cough and congestion x 1 week, nausea started 2 days jl7 ago, vomited 5 times. Transition of care: patient was not received from another setting of care. Onset of symptoms was December 23, 2018. Risk Assessment: Do you want to hurt yourself or someone else? Patient reports no desire to harm self or others. Initial Sepsis Screen: Does the patient meet any 2 criteria? RR > 20 per min. No. Patient's initial sepsis screen is negative. Does the patient have a suspected source of infection? No. Patient's initial sepsis screen is negative. Care prior to arrival: None. 11:18 Method Of Arrival: EMS: [facility] jl7 11:18 Acuity: JAELYN 3 jl7 Triage Assessment: 11:21 General: Appears in no apparent distress. uncomfortable, Behavior is calm, cooperative, jl7 appropriate for age. Pain: Complains of pain in headache and body aches Pain currently is 9 out of 10 on a pain scale. EENT: No signs and/or symptoms were reported regarding the EENT system. Neuro: Level of Consciousness is awake, alert, obeys commands, Oriented to person, place, time, situation. Cardiovascular: Heart tones S1 S2 present Patient's skin is warm and dry. Respiratory: Airway is patent Respiratory effort is even, labored, Respiratory pattern is symmetrical, tachypnea Breath sounds with wheezes bilaterally. GI: Reports nausea. : No signs and/or symptoms were reported regarding the genitourinary system. Derm: Skin is pink, warm \\T\\ dry. Musculoskeletal: No signs and/or symptoms reported regarding the musculoskeletal system. Historical: - Allergies: 11:21 NKDA; jl7 - Home Meds: 11:21 Albuterol Inhl [Active]; lisinopril 20 mg Oral tab 1 tab once daily [Active]; metformin jl7 500 mg Oral tr24 1 tab once daily [Active]; - PMHx: 11:21 Asthma; Diabetes - NIDDM; Hypertension; jl7 - Immunization history:: Adult Immunizations up to date. - Social history:: Smoking status: Patient uses tobacco products, 3 cigarettes/day. - Ebola Screening: : No symptoms or risks identified at this time. Screenin:58 Abuse screen: Denies threats or abuse. Denies injuries from another. Nutritional jl7 screening: No deficits noted. Tuberculosis screening: No symptoms or risk factors identified. Fall Risk IV access (20 points). Total John Fall Scale indicates No Risk (0-24 pts). Assessment: 11:30 General: See triage assessment. jl7 12:30 Reassessment: Patient appears in no apparent distress at this time. No changes from jl7 previously documented assessment. Patient and/or family updated on plan of care and expected duration. Pain level reassessed. Patient is alert, oriented x 3, equal unlabored respirations, skin warm/dry/pink. Pt states "The breathing treatment helped just a little." Wheezes auscultated to bilateral lungs. Vital Signs: 11:21 BP 152 / 80; Pulse 89; Resp 24 S; Temp 98(O); Pulse Ox 97% on R/A; Weight 97.52 kg (R); jl7 Height 5 ft. 9 in. (175.26 cm); Pain 9/10; 13:01 BP 141 / 82; Pulse 101; Resp 16; Pulse Ox 96% ; jl7 14:24 BP 135 / 88; Pulse 94; Resp 16 S; Pulse Ox 97% on R/A; Pain 6/10; jl7 11:21 Body Mass Index 31.75 (97.52 kg, 175.26 cm) jl7 ED Course: 11:18 Patient arrived in ED. jl7 11:18 Jonh Kessler NP is PHCP. pm1 11:18 Noam Taylor MD is Attending Physician. pm1 11:20 Triage completed. jl7 11:21 Arm band placed on right wrist. jl7 11:42 Bee Zhang RN is Primary Nurse. jl7 11:58 Patient has correct armband on for positive identification. Placed in gown. Bed in low jl7 position. Call light in reach. Side rails up X 1. Pulse ox on. NIBP on. Warm blanket given. 11:58 Initial lab(s) drawn, by me, sent to lab. Flu and/or RSV swab sent to lab. Strep swab jl7 sent to lab. Inserted saline lock: 20 gauge in right antecubital area, using aseptic technique. Blood collected. 12:21 X-ray completed. Patient tolerated procedure well. [facility] 12:21 Chest Pa And Lat (2 Views) XRAY In Process Unspecified. EDMS 14:24 No provider procedures requiring assistance completed. IV discontinued, intact, jl7 bleeding controlled, No redness/swelling at site. Pressure dressing applied. Administered Medications: 11:57 Drug: SOLU-Medrol 125 mg Route: IVP; Site: right antecubital; jl7 12:30 Follow up: Response: No adverse reaction; No change in condition 7 11:57 Drug: Albuterol - atroVENT (3:1) (2.5 mg - 0.5 mg) 3 ml Route: Nebulizer; jl7 12:30 Follow up: Response: No adverse reaction; Wheezing unchanged jl7 13:04 Drug: Tylenol 1000 mg Route: PO; jl7 14:00 Follow up: Response: No adverse reaction; Pain is decreased jl7 Outcome: 14:08 Discharge ordered by . pm1 14:24 Discharged to home ambulatory, with family. jl7 14:24 Condition: stable 14:24 Discharge instructions given to patient, family, Instructed on discharge instructions, follow up and referral plans. medication usage, Demonstrated understanding of instructions, follow-up care, medications, Prescriptions given X 3. 14:28 Patient left the ED. jl7 Signatures: Dispatcher [employer] EDWA Batsheva Ball [facility] Jonh Kesselr, JAYME MULTIMEDIA EDITOR pm1 Bee Zhang RN RN jl7
[2018-12-29 14:33] VITALS: TEMP 98
[2018-12-29 14:35] VITALS: BP 135/88; O2SAT 97
== END 2018-12-29 14:28 | disposition home or self-care (01) ==
LOC: ER 11:11
DX: J40 Bronchitis, not specified as acute or chronic (principal); I10 Essential (primary) hypertension; E11.9 Type 2 diabetes mellitus without complications; J45.909 Unspecified asthma, uncomplicated; Z72.0 Tobacco use
CPT/HCPCS: 36415; 71046; 80053; 85025; 87081; 87804; 94640; 96374; 99284; J2930

== ENCOUNTER 2022-10-07 19:00 | Emergency (ER) | payer OTHER ==
[2022-10-07] MEDS ORDERED: ALBUTEROL 2.5 MG/3 ML NEB SOL ONE (19:27)
[2022-10-07] MEDS ORDERED: METHYLPREDNISOLONE 125 MG INJ ONE (19:27)
[2022-10-07] MEDS ORDERED: IPRATROPIUM BROM 0.5MG/2.5ML ONE (19:28)
[2022-10-07 20:34] LABS: SARS-COV-2 RT PCR NEGATIVE (NEGATIVE)
--- NOTE | 2022-10-07 20:36 | ER ---
Nurse's Notes [facility] Name: Chris Jama Age: 52 yrs Sex: Male : 1970 Arrival Date: 10/07/2022 Time: 19:01 Bed 19 Private MD: Diagnosis: Unspecified asthma with (acute) exacerbation Presentation: 10/07 19:02 Chief complaint: EMS states: GOT OVERHEATED AND HAD AN ASTHMA ATTACK. Coronavirus bp screen: At this time, the client does not indicate any symptoms associated with coronavirus-19. Ebola Screen: No symptoms or risks identified at this time. Initial Sepsis Screen: Does the patient meet any 2 criteria? HR > 90 bpm. No. Patient's initial sepsis screen is negative. Does the patient have a suspected source of infection? No. Patient's initial sepsis screen is negative. Risk Assessment: Do you want to hurt yourself or someone else? Patient reports no desire to harm self or others. Onset of symptoms was October 07, 2022 at 18:30. Care prior to arrival: Medication(s) given: Albuterol Neb x 1. 19:02 Method Of Arrival: EMS bp 19:02 Acuity: JAELYN 3 bp Triage Assessment: 19:08 General: Appears in no apparent distress. Behavior is cooperative, appropriate for age, bp anxious. Pain: Denies pain. EENT: No deficits noted. Neuro: No deficits noted. Cardiovascular: No deficits noted. Respiratory: No deficits noted. GI: No signs and/or symptoms were reported involving the gastrointestinal system. : No signs and/or symptoms were reported regarding the genitourinary system. Derm: No deficits noted. Musculoskeletal: No deficits noted. Historical: - Allergies: 19:08 NKDA; bp - Home Meds: 19:08 Albuterol Inhl [Active]; lisinopril 20 mg Oral tab 1 tab once daily [Active]; metformin bp 500 mg Oral tr24 1 tab once daily [Active]; - PMHx: 19:08 Hypertension; Diabetes - NIDDM; Asthma; bp - Immunization history:: Adult Immunizations up to date. - Social history:: Smoking status: Patient denies any tobacco usage or history of. Screenin:10 Abuse screen: Denies threats or abuse. Denies injuries from another. Nutritional bp screening: No deficits noted. Tuberculosis screening: No symptoms or risk factors identified. Fall Risk None identified. Assessment: 19:10 General: SEE TRIAGE NOTE. bp 20:24 Reassessment: Patient and/or family updated on plan of care and expected duration. Pain vc1 level reassessed. Patient is alert, oriented x 3, equal unlabored respirations, skin warm/dry/pink. Patient states feeling better. Patient states symptoms have improved. Vital Signs: 19:02 BP 151 / 91; Pulse 111; Resp 16; Temp 97.7; Pulse Ox 96% on R/A; Weight 113.4 kg; bp Height 5 ft. 9 in. (175.26 cm); 20:25 BP 140 / 66; Pulse 104; Resp 17; Pulse Ox 99% ; vc1 19:02 Body Mass Index 36.92 (113.40 kg, 175.26 cm) bp ED Course: 19:01 Patient arrived in ED. bp 19:08 Triage completed. bp 19:08 Arm band placed on. bp 19:10 Patient has correct armband on for positive identification. Bed in low position. Call bp light in reach. Side rails up X2. 19:12 Steffi Newton FNP-C is [facility]. kb 19:12 Remy Terviño MD is Attending Physician. kb 20:24 Natalia Garber RN is Primary Nurse. vc1 21:09 No provider procedures requiring assistance completed. Patient did not have IV access vc1 during this emergency room visit. Administered Medications: 19:33 Drug: Albuterol 2.5 mg Route: Inhalation; bp 19:33 Drug: AtroVENT (ipratropium) Aerosol 0.5 mg Route: Inhalation; bp 19:33 Drug: SOLU-Medrol (methylPREDNISolone sodium succinate) 125 mg Route: IM; Site: right bp vastus lateralis; 21:08 Follow up: Response: No adverse reaction vc1 Medication: 19:10 VIS not applicable for this client. bp Outcome: 20:36 Discharge ordered by . kb 21:09 Discharged to home ambulatory. vc1 21:09 Condition: good 21:09 Discharge instructions given to patient, Instructed on discharge instructions, follow up and referral plans. medication usage, Demonstrated understanding of instructions, follow-up care, medications, Prescriptions given X 2. 21:09 Patient left the ED. vc1 Signatures: Steffi Newton FNP-C FNP-Ckb Leopoldo Gallegos, RN RN bp Natalia Garber, RN RN vc1
--- NOTE | 2022-10-07 20:36 | EDPHYS ---
Physician Documentation [facility] Name: Chris Jama Age: 52 yrs Sex: Male : 1970 Arrival Date: 10/07/2022 Time: 19:01 Bed 19 Private MD: ED Physician Remy Treviño HPI: 10/07 20:02 This 52 yrs old Male presents to ER via EMS with complaints of Asthma Exacerbation. kb 20:02 The patient presents to the emergency department with wheezing, Current therapy: None. kb Onset: The symptoms/episode began/occurred today. Modifying factors: The symptoms are alleviated by nothing, the symptoms are aggravated by nothing. Associated signs and symptoms: The patient has no apparent associated signs or symptoms. Severity of symptoms: At their worst the symptoms were mild in the emergency department the symptoms are unchanged. The patient has experienced similar episodes in the past. The patient has not recently seen a physician. Pt reports cough, shortness of breath and chills that since yesterday. States he was cooking and had an asthma attack so he called 911. Given neb treatment in route to ER. Historical: - Allergies: 19:08 NKDA; bp - Home Meds: 19:08 Albuterol Inhl [Active]; lisinopril 20 mg Oral tab 1 tab once daily [Active]; metformin bp 500 mg Oral tr24 1 tab once daily [Active]; - PMHx: 19:08 Hypertension; Diabetes - NIDDM; Asthma; bp - Immunization history:: Adult Immunizations up to date. - Social history:: Smoking status: Patient denies any tobacco usage or history of. ROS: 20:02 Abdomen/GI: Negative for abdominal pain, nausea, vomiting, diarrhea, and constipation. kb 20:02 Respiratory: Positive for cough, shortness of breath, wheezing, Negative for dyspnea on exertion, hemoptysis, orthopnea, pleurisy. 20:02 All other systems are negative. 20:02 Constitutional: Positive for chills, Negative for fever. kb Exam: 20:02 Constitutional: This is a well developed, well nourished patient who is awake, alert, kb and in no acute distress. Head/Face: Normocephalic, atraumatic. ENT: Moist Mucous membranes Cardiovascular: Regular rate and rhythm with a normal S1 and S2. No gallops, murmurs, or rubs. No pulse deficits. Respiratory: Respirations even and unlabored. No increased work of breathing. Talking in full sentences Abdomen/GI: Soft, non-tender. No distention Skin: Warm, dry with normal turgor. Normal color. MS/ Extremity: Pulses equal, no cyanosis. Neurovascular intact. Full, normal range of motion. Neuro: Awake and alert, GCS 15, oriented to person, place, time, and situation. Moves all extremities. Normal gait. Vital Signs: 19:02 BP 151 / 91; Pulse 111; Resp 16; Temp 97.7; Pulse Ox 96% on R/A; Weight 113.4 kg; bp Height 5 ft. 9 in. (175.26 cm); 20:25 BP 140 / 66; Pulse 104; Resp 17; Pulse Ox 99% ; vc1 19:02 Body Mass Index 36.92 (113.40 kg, 175.26 cm) bp MDM: 19:12 Patient medically screened. kb 20:02 Data reviewed: vital signs, nurses notes. Data interpreted: Pulse oximetry: on room air kb is 99 %. Interpretation: normal. 20:35 Counseling: I had a detailed discussion with the patient and/or guardian regarding: the kb historical points, exam findings, and any diagnostic results supporting the discharge/admit diagnosis, the need for outpatient follow up, a family practitioner, to return to the emergency department if symptoms worsen or persist or if there are any questions or concerns that arise at home. 10/07 19:16 Order name: COVID-19/FLU A+B; Complete Time: 20:35 kb Administered Medications: 19:33 Drug: Albuterol 2.5 mg Route: Inhalation; bp 19:33 Drug: AtroVENT (ipratropium) Aerosol 0.5 mg Route: Inhalation; bp 19:33 Drug: SOLU-Medrol (methylPREDNISolone sodium succinate) 125 mg Route: IM; Site: right bp vastus lateralis; 21:08 Follow up: Response: No adverse reaction vc1 Disposition Summary: 10/07/22 20:36 Discharge Ordered Location: Home kb Condition: Stable kb Diagnosis - Unspecified asthma with (acute) exacerbation kb Followup: kb - With: Emergency Department - When: As needed - Reason: Worsening of condition Followup: kb - With: Private Physician - When: 2 - 3 days - Reason: Recheck today's complaints, Continuance of care, Re-evaluation by your physician Discharge Instructions: - Discharge Summary Sheet kb - Asthma, Adult, [id number] kb Forms: - Medication Reconciliation Form kb - Thank You Letter kb - Antibiotic Education kb - Prescription Opioid Use kb Prescriptions: - Prednisone 20 mg Oral Tablet - take 1 tablet by ORAL route once daily for 5 days; 5 tablet; Refills: 0, kb Product Selection Permitted - albuterol sulfate 90 mcg/actuation Inhalation HFA aerosol inhaler - inhale 2 puff by INHALATION route every 4-6 hours As needed; 1 Inhaler; kb Refills: 0, Product Selection Permitted Addendum: 10/10/2022 13:27 Co-signature as Attending Physician, Remy Treviño MD I agree with the assessment and c olpez plan of care. Signatures: Dispatcher [employer] EDSteffi Garner, MATERIAL DAMAGE APPRAISER-C MATERIAL DAMAGE APPRAISER-Remy Browne MD MD cha Peltier, Brian, RN RN bp Natalia Garber RN vc1 Corrections: (The following items were deleted from the chart) 10/07 20:02 20:02 Constitutional: Negative for fever, chills, and weight loss, kb kb
[2022-10-07 21:27] VITALS: TEMP 97.7
[2022-10-07 21:28] VITALS: BP 140/66; O2SAT 99
== END 2022-10-07 21:09 | disposition home or self-care (01) ==
LOC: ER 19:00
DX: J45.901 Unspecified asthma with (acute) exacerbation (principal); I10 Essential (primary) hypertension; Z20.822 Contact with and (suspected) exposure to COVID-19
CPT/HCPCS: 0240U; 96372; 99284; J2930; J7613; J7644

== ENCOUNTER 2022-10-28 10:13 | Inpatient (IN) | payer OTHER, SELFPAY ==
[2022-10-28] MEDS ORDERED: METHYLPREDNISOLONE 125 MG INJ ONE (10:27)
[2022-10-28] MEDS ORDERED: MAGNESIUM SULFATE 1 gm IVPB 1 GM/100 ML BAG IV ONE (10:28)
[2022-10-28] MEDS ORDERED: IPRATROPIUM BROM 0.5MG/2.5ML ONE (10:28)
[2022-10-28] MEDS ORDERED: NA CHLORIDE 0.9% 1,000 ML ONE ×3 (10:28→17:03)
[2022-10-28] MEDS ORDERED: LEVALBUTEROL 1.25 MG/3 ML NEB ONE ×2 (10:28→20:02)
[2022-10-28 10:51] LABS: Absolute Lymphocytes (CBC) 0.9 K/uL (0.7-4.9); Hematocrit 43.6 % (39.6-49.0); Lymphocytes % 13.5 % (15.3-44.8); MCV 86.6 fL (80-100); MPV 8.5 fL (7.6-11.3); RBC Red Blood Cell Count 5.03 M/uL (4.33-5.43)
[2022-10-28 11:02] LABS: Protime INR 1.05
[2022-10-28 11:09] LABS: Albumin 4.5 g/dL (3.4-5.0); Bilirubin Direct 0.3 mg/dL (0-0.2); Potassium 4.2 mmol/L (3.5-5.1); Protein, Total 7.8 g/dL (6.4-8.2); Troponin High Sensitivity 21.5 pg/mL (<58.9)
--- NOTE | 2022-10-28 11:34 | RAD REPORT ---
EXAM DESCRIPTION: RAD - Chest Single View - 10/28/2022 11:19 am CLINICAL HISTORY: DYSPNEA COMPARISON: Two view chest 12/29/2018 TECHNIQUE: AP portable chest image was obtained 10/28/2022 11:19 am . FINDINGS: No focal mass or consolidations seen. Lung markings are diffusely prominent, worse in each lung base. A similar pattern was seen previously. The severity of this chronic pattern could easily mask acute interstitial edema or infiltrate. Hilar regions are stable. Trachea is midline. Heart and vasculature are normal. No measurable pleural effusion and no pneumothorax. No acute bony abnormality seen. No acute aortic f indings suspected. IMPRESSION: No acute focal lung parenchymal process seen. Chronic diffusely prominent interstitial pattern, similar to comparison, could mask edema or infiltra te.
[2022-10-28 11:44] LABS: SARS-COV-2 RT PCR NEGATIVE (NEGATIVE)
--- NOTE | 2022-10-28 12:05 | ER ---
Nurse's Notes [facility] Name: Chris Jama Age: 52 yrs Sex: Male : 1970 Arrival Date: 10/28/2022 Time: 10:15 Bed 17 Private MD: Diagnosis: Influenza due to identified novel influenza A virus with other respiratory manifestations;Unspecified asthma with (acute) exacerbation;Sepsis secondary to viral source, influenza Presentation: 10/28 10:20 Chief complaint: EMS states: Pt reports SOB since yesterday, hx of asthma, states that ph SOB became worse today and he ran out of his inhaler, A\T\A given w/ some relief but pt states that symptoms returned after tx was complete, tachypneic upon arrival but able to speak in full sentences, Spo2 100%. Coronavirus screen: Vaccine status: Patient reports being unvaccinated. Ebola Screen: No symptoms or risks identified at this time. Initial Sepsis Screen: Does the patient meet any 2 criteria? RR > 20 per min. HR > 90 bpm. Does the patient have a suspected source of infection? No. Patient's initial sepsis screen is negative. Risk Assessment: Do you want to hurt yourself or someone else? Patient reports no desire to harm self or others. Onset of symptoms was October 28, 2022. 10:20 Method Of Arrival: EMS: [facility] 10:20 Acuity: JAELYN 2 ph Triage Assessment: 10:23 General: Appears in no apparent distress. uncomfortable, Behavior is cooperative, ph appropriate for age, Denies fever. Pain: Complains of pain in chest. Neuro: Level of Consciousness is awake, alert, obeys commands, Oriented to person, place, time, situation. Cardiovascular: Capillary refill < 3 seconds in bilateral fingers Patient's skin is warm and dry. Respiratory: Reports shortness of breath at rest Airway is patent Respiratory effort is labored, Respiratory pattern is tachypnea. Musculoskeletal: Circulation, motion, and sensation intact. Range of motion: intact in all extremities. Historical: - Allergies: 10:23 NKDA; ph - Home Meds: 10:23 Albuterol Inhl [Active]; lisinopril 20 mg Oral tab 1 tab once daily [Active]; metformin ph 500 mg Oral tr24 1 tab once daily [Active]; - PMHx: 10:23 Asthma; Diabetes - NIDDM; Hypertension; ph - Immunization history:: Adult Immunizations unknown. - Social history:: Smoking status: Patient/guardian denies using tobacco, Stopped _ months ago 2. - Family history:: not pertinent. - Hospitalizations: : No recent hospitalization is reported. Assessment: 11:27 Reassessment: Patient appears in no apparent distress at this time. Patient and/or ph family updated on plan of care and expected duration. Pain level reassessed. 13:41 Reassessment: Repeat lactate sent. ph Vital Signs: 10:20 BP 156 / 83; Pulse 111; Resp 32; Temp 97.5; Pulse Ox 100% on R/A; Weight 113.4 kg; ph Height 5 ft. 9 in. (175.26 cm); 11:38 BP 104 / 85; Pulse 109; Resp 26; Pulse Ox 92% on R/A; ph 11:38 Pulse Ox 97% on 2 lpm NC; ph 13:28 BP 106 / 62; Pulse 108; Resp 21; Pulse Ox 99% ; ph 10:20 Body Mass Index 36.92 (113.40 kg, 175.26 cm) ph ED Course: 10:15 Patient arrived in ED. ph 10:15 Eliezer Guallpa MD is Attending Physician. rn 10:16 Brooke Joy RN is Primary Nurse. ph 10:23 Triage completed. ph 10:23 Arm band placed on Patient placed in an exam room, on a stretcher, on staker surveying, ph on pulse oximetry. 10:30 Inserted saline lock: 20 gauge in right antecubital area, using aseptic technique. jd3 Blood collected. 10:35 Inserted saline lock: 20 gauge in left antecubital area, using aseptic technique. Blood jd3 collected. 11:21 XRAY CXR (1 view) In Process Unspecified. EDMS 12:03 Luke Rossi MD is Hospitalizing Provider. rn Administered Medications: 10:36 Drug: Magnesium Sulfate 1 grams Route: IVPB; Infused Over: 1 hrs; Site: right ph antecubital; 11:43 Follow up: Response: No adverse reaction; IV Status: Completed infusion ph 10:36 Drug: Xopenex (levalbuterol) (3) 1.25 mg Route: Inhalation; ph 11:43 Follow up: Response: No adverse reaction ph 10:36 Drug: AtroVENT (ipratropium) Aerosol 0.5 mg Route: Inhalation; ph 11:43 Follow up: Response: No adverse reaction ph 10:36 Drug: NS 0.9% 1000 ml Route: IV; Rate: 1000 ml; Site: left antecubital; ph 11:43 Follow up: Response: No adverse reaction; IV Status: Completed infusion; IV Intake: ph 1000ml 10:41 Drug: SOLU-Medrol (methylPrednisoLONE) 125 mg Route: IVP; Site: right antecubital; ph 11:43 Follow up: Response: No adverse reaction ph 11:55 Drug: NS 0.9% 1000 ml Route: IV; Rate: 1000 ml; Site: right antecubital; ph 16:29 Drug: Tamiflu (oseltamivir) 75 mg Route: PO; ph 21:00 Drug: Xopenex (levalbuterol) 3.75 mg Route: Inhalation; pf1 22:00 Follow up: Response: Marked relief of symptoms pf1 21:30 Drug: Albuterol 2.5 mg Route: Inhalation; pf1 22:30 Follow up: Response: Marked relief of symptoms pf1 Intake: 11:43 IV: 1000ml; Total: 1000ml. ph Outcome: 12:04 Decision to Hospitalize by Provider. rn 10/29 11:45 Patient left the ED. ss Signatures: Dispatcher [employer] EDEliezer Rankin MD MD rn Smirch, Shelby, RN RN ss Brooke Joy ph D, RN RNavies, Jonathon, RN RN jd3 finley, Pamala, RN RN pf1
--- NOTE | 2022-10-28 12:05 | EDPHYS ---
Physician Documentation [facility] Name: Chris Jama Age: 52 yrs Sex: Male : 1970 Arrival Date: 10/28/2022 Time: 10:15 Bed 17 Private MD: ED Physician Eliezer Guallpa HPI: 10/28 10:23 This 52 yrs old Male presents to ER via EMS with complaints of Asthma Exacerbation. rn 10:23 The patient presents to the emergency department with wheezing, Current therapy: rn albuterol inhaler. Onset: The symptoms/episode began/occurred yesterday. Modifying factors: The symptoms are alleviated by inhaler, nebulizer treatment, the symptoms are aggravated by nothing. Associated signs and symptoms: Pertinent positives: fever, cough, wheezing. Severity of symptoms: At their worst the symptoms were moderate in the emergency department the symptoms are unchanged. The patient has experienced similar episodes in the past. The patient has not recently seen a physician. Pt reports 2 days of cough, sob, this morning woke up with fever and chills. NO vomiting/diarrhea. NO chest pain. + smoker. Given albuterol and atrovent by EMS. . Historical: - Allergies: 10:23 NKDA; ph - Home Meds: 10:23 Albuterol Inhl [Active]; lisinopril 20 mg Oral tab 1 tab once daily [Active]; metformin ph 500 mg Oral tr24 1 tab once daily [Active]; - PMHx: 10:23 Asthma; Diabetes - NIDDM; Hypertension; ph - Immunization history:: Adult Immunizations unknown. - Social history:: Smoking status: Patient/guardian denies using tobacco, Stopped _ months ago 2. - Family history:: not pertinent. - Hospitalizations: : No recent hospitalization is reported. 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 Exam: 10:23 Constitutional: This is a well developed, well nourished patient who is awake, alert, rn + moderate tachypnea Head/Face: Normocephalic, atraumatic. Eyes: Pupils equal round and reactive to light, extra-ocular motions intact. Lids and lashes normal. Conjunctiva and sclera are non-icteric and not injected. Cornea within normal limits. Periorbital areas with no swelling, redness, or edema. ENT: no stridor Cardiovascular: Tachycardic, regular. No pulse deficits. Respiratory: + moderate tachypnea, no retractions, + diminished bilateral breath sounds with exp wheezing. Abdomen/GI: soft, non-tender Skin: Warm, dry MS/ Extremity: Pulses equal, no cyanosis. Neuro: Awake and alert, GCS 15 13:18 ECG was reviewed by the Attending Physician. rn Vital Signs: 10:20 BP 156 / 83; Pulse 111; Resp 32; Temp 97.5; Pulse Ox 100% on R/A; Weight 113.4 kg; ph Height 5 ft. 9 in. (175.26 cm); 11:38 BP 104 / 85; Pulse 109; Resp 26; Pulse Ox 92% on R/A; ph 11:38 Pulse Ox 97% on 2 lpm NC; ph 13:28 BP 106 / 62; Pulse 108; Resp 21; Pulse Ox 99% ; ph 10:20 Body Mass Index 36.92 (113.40 kg, 175.26 cm) ph MDM: 10:15 Patient medically screened. rn 11:48 Differential diagnosis: acute asthma, reactive airway, URI, asthma exacerbation, sepsis rn from viral source, covid, flu. Data reviewed: vital signs, nurses notes, lab test result(s), radiologic studies, plain films, and as a result, I will admit patient. Counseling: I had a detailed discussion with the patient and/or guardian regarding: the historical points, exam findings, and any diagnostic results supporting the discharge/admit diagnosis, lab results, radiology results, the need for further work-up and treatment in the hospital. Response to treatment: the patient's symptoms have mildly improved after treatment, and as a result, I will admit patient. Admission orders: after a detailed discussion of the patient's condition and case, the admit orders are written by me. ED course: Pt with influenza, sepsis without severe sepsis or septic shock, elevated lactate, but less than 4, getting 2 L bolus and will reeval, does not require 30ml/kg bolus at this time. . 10/28 10:17 Order name: BMP; Complete Time: 11:44 rn 10/28 10:17 Order name: Blood Culture Adult (2) rn 10/28 10:17 Order name: CBC with Diff; Complete Time: 11:44 rn 10/28 10:17 Order name: D-Dimer; Complete Time: 11:44 rn 10/28 10:17 Order name: Hepatic Function; Complete Time: 11:44 rn 10/28 10:17 Order name: NT PRO-BNP; Complete Time: 11:44 rn 10/28 10:17 Order name: PT-INR; Complete Time: 11:44 rn 10/28 10:17 Order name: Ptt, Activated; Complete Time: 11:44 rn 10/28 10:17 Order name: Troponin HS; Complete Time: 11:44 rn 10/28 10:17 Order name: COVID-19/FLU A+B; Complete Time: 11:47 rn 10/28 10:17 Order name: Lactate w/ 2H reflex if indic.; Complete Time: 11:44 rn 08 14:03 Order name: Lactate Sepsis 2 HR Follow-up; Complete Time: 17:02 EDMS 10/28 17:09 Order name: Glucose, Ancillary Testing EDME 10/28 17:40 Order name: Lactate w/ 2H reflex if indic. EDMS 10/28 10:17 Order name: XRAY CXR (1 view); Complete Time: 11:44 rn 10/28 10:17 Order name: EKG; Complete Time: 10:17 rn 08 23:15 Order name: Glucose, Ancillary Testing EDMS 10/29 05:56 Order name: Basic Metabolic Panel EDMS 10/29 05:56 Order name: Magnesium EDMS 10/29 07:58 Order name: Glucose, Ancillary Testing EDMS 10/29 11:15 Order name: Glucose, Ancillary Testing EDMS 10/28 10:17 Order name: Cardiac monitoring; Complete Time: 10:42 rn 10/28 10:17 Order name: EKG - Nurse/Tech; Complete Time: 10:42 rn 10/28 10:17 Order name: IV Saline Lock; Complete Time: 10:42 rn 10/28 10:17 Order name: Labs collected and sent; Complete Time: 10:42 rn 10/28 10:17 Order name: O2 Per Protocol; Complete Time: :42 rn 10/28 10:17 Order name: O2 Sat Monitoring; Complete Time: 10:42 rn EC:18 Rate is 112 beats/min. Rhythm is regular. QRS [place] is Normal. RI interval is normal. rn QRS interval is normal. QT interval is normal. No Q waves. T waves are Normal. No ST changes noted. Clinical impression: Sinus tachycardia. Interpreted by me. Reviewed by me. Administered Medications: 10:36 Drug: Magnesium Sulfate 1 grams Route: IVPB; Infused Over: 1 hrs; Site: right ph antecubital; 11:43 Follow up: Response: No adverse reaction; IV Status: Completed infusion ph 10:36 Drug: Xopenex (levalbuterol) (3) 1.25 mg Route: Inhalation; ph 11:43 Follow up: Response: No adverse reaction ph 10:36 Drug: AtroVENT (ipratropium) Aerosol 0.5 mg Route: Inhalation; ph 11:43 Follow up: Response: No adverse reaction ph 10:36 Drug: NS 0.9% 1000 ml Route: IV; Rate: 1000 ml; Site: left antecubital; ph 11:43 Follow up: Response: No adverse reaction; IV Status: Completed infusion; IV Intake: ph 1000ml 10:41 Drug: SOLU-Medrol (methylPrednisoLONE) 125 mg Route: IVP; Site: right antecubital; ph 11:43 Follow up: Response: No adverse reaction ph 11:55 Drug: NS 0.9% 1000 ml Route: IV; Rate: 1000 ml; Site: right antecubital; ph 16:29 Drug: Tamiflu (oseltamivir) 75 mg Route: PO; ph 21:00 Drug: Xopenex (levalbuterol) 3.75 mg Route: Inhalation; pf1 22:00 Follow up: Response: Marked relief of symptoms pf1 21:30 Drug: Albuterol 2.5 mg Route: Inhalation; pf1 22:30 Follow up: Response: Marked relief of symptoms pf1 Disposition: 12:03 Critical Care:. rn Disposition Summary: 10/28/22 12:04 Hospitalization Ordered Hospitalization Status: Inpatient Admission rn Provider: Luke Rossi rn Condition: Stable rn Problem: new rn Symptoms: have improved rn Bed/Room Type: Standard rn Location: Telemetry/MedSurg (Inpatient)(10/29/22 10:59) eb Room Assignment: 215(10/29/22 10:59) eb Diagnosis - Influenza due to identified novel influenza A virus with other respiratory rn manifestations - Unspecified asthma with (acute) exacerbation rn - Sepsis secondary to viral source, influenza rn Forms: - Medication Reconciliation Form rn - SBAR form internet retailer time excluding procedures: 12:03 Critical care time: Bedside Care: 35 minutes. Total time: 35 minutes rn Signatures: Dispatcher [employer] EDMS Remy Treviño MD MD cha Nieto, Roman, MD MD rn Hall, Patricia RN RN Yamilex [place] Pamala RN RN pf1 Apple Darby rv1 Corrections: (The following items were deleted from the chart) 13:09 12:56 CONS Physician Consult ordered. EDMS EDMS 20:24 12:04 Telemetry/MedSurg (Inpatient) rn rv1 20:24 12:04 rn rv1 10/29 10:59 1208 20:24 [facility] ER HOLD rv1 eb 10/29 10:59 12 20:24 ERHOLD- rv1 eb
--- NOTE | 2022-10-28 13:20 | P.HP ---
Certification for Inpatient Patient admitted to: Observation With expected LOS: <2 Midnights Patient will require the following post-hospital care: None Practitioner: I am a practitioner with admitting privileges, knowledge of patient current condition, hospital course, and medical plan of care. Services: Services provided to patient in accordance with Admission requirements found in Title 42 Section 412.3 of the Code of Federal Regulations <Arjun Mayo - Last Filed: 10/28/22 13:07> Patient History Date of Service: 10/28/22 Reason for admission: asthma exacerbation History of Present Illness: Mr. Jama is a 52 yo M with asthma, diabetes mellitus, and hypertension who presents with two days of fever and shortness of breath. He reports albuterol inhaler and nebulizer treatment at home did not improve his symptoms. He has been experiencing cough, wheezing, pleuritic pain, and malaise. Influenza test positive in the ED. He received nebulizer treatment, steroids, and IV fluids in the ED. Patient is flagging severe sepsis for tachypnea, HR of 115bpm, and lactic acid of 2.5. Sats 99% on 2L NC. Patient is able to talk in complete sentences with moderate effort. Labs significant for Cr 1.44, GFR 59, BNP 500. EKG shows tachycardia, troponin wnl. CXR shows no acute focal lung parenchymal p rocess seen. Chronic diffusely prominent interstitial pattern, similar to comparison, could mask edema or infiltrate. - Past Medical/Surgical History Has patient received pneumonia vaccine in the past: No Diabetic: Yes -: HTN -: NIDDM -: ASTHMA -: depression, anxiety -: R/KNEE SX -: R/EYE SX -: HERNIA REPAIR X 2 -: TONSILLECTOMY -: SIMA -: TESTICLE SURGERY - Family History Mother -: Hypertension, Diabetes Father -: Hypertension, Diabetes Sister -: Hypertension - Social History Smoking Status: Former smoker Alcohol use: No CD- Drugs: No Caffeine use: Yes Place of Residence: Home <Arjun Mayo - Last Filed: 10/28/22 13:07> Date of Service: 10/28/22 <Luke Rossi - Last Filed: 10/28/22 18:08> Allergies No Known Drug Allergies Allergy (Unverified 02/04/16 19:29) Unknown Home Medications: Metformin HCl [Glucophage] 500 mg PO BID 05/19/15 lisinopriL [Prinivil*] 20 mg PO DAILY 05/19/15 Review of Systems General: Fever, Chills, Sweats, Weakness, Malaise, As per HPI Eyes: Unremarkable ENT: Nose Congestion, As per HPI Respiratory: Cough, Shortness of Breath, Pleuritic Pain, Wheezing, As per HPI Cardiovascular: Chest Pain, As per HPI Gastrointestinal: Unremarkable Genitourinary: Unremarkable Musculoskeletal: Unremarkable Integumentary: Unremarkable Neurological: Unremarkable Lymphatics: Unremarkable <Arjun Mayo - Last Filed: 10/28/22 13:07> Physical Examination - Physical Exam General: Alert, In no apparent distress HEENT: Atraumatic, Normocephalic Neck: Supple Respiratory: Expiratory wheezes, Other (tachypnnea) Cardiovascular: No edema, Other (tachycardic) Gastrointestinal: Normal bowel sounds, Soft and benign Musculoskeletal: No swelling Integumentary: No rashes Neurological: Normal speech, Normal affect Lymphatics: No axilla or inguinal lymphadenopathy - Studies Laboratory Data (last 24 hrs) 10/28/22 10:36: PT 11.5, INR 1.05, APTT 30.2 10/28/22 10:36: WBC 6.60, Hgb 15.1, Hct 43.6, Plt Count 195 10/28/22 10:36: Sodium 133 L, Potassium 4.2, BUN 11, Creatinine 1.44 H, Glucose 199 H, Total Bilirubin 1.0, AST 26, ALT 35, Alkaline Phosphatase 83 <Arjun Mayo - Last Filed: 10/28/22 13:07> - Studies Laboratory Data (last 24 hrs) 10/28/22 10:36: PT 11.5, INR 1.05, APTT 30.2 10/28/22 10:36: WBC 6.60, Hgb 15.1, Hct 43.6, Plt Count 195 10/28/22 10:36: Sodium 133 L, Potassium 4.2, BUN 11, Creatinine 1.44 H, Glucose 199 H, Total Bilirubin 1.0, AST 26, ALT 35, Alkaline Phosphatase 83 <Luke Rossi - Last Filed: 10/28/22 18:08> Assessment and Plan - Plan Assessment Asthma exacerbation secondary to influenza Severe sepsis Acute renal failure Diabetes mellitus Hypertension Elevated BNP Plan Asthma exacerbation secondary to influenza - continue O2, IV steroids, breathing treatments - RT consulted - will start Tamiflu and continue symptomatic treatment for flu - will monitor overnight and consult pulmonology if no improvement Severe sepsis - continue IV fluid hydration - patient started on Tamiflu - trend lactic acid Acute renal failure - continue IV fluid hydration - monitor BMP - consult nephrology if no improvement Diabetes mellitus - sliding scale insulin and accuchecks Hypertension - reconcile and continue home medications - IV hydralazine PRN Elevated BNP - BNP 500 - no signs of volume overload or cardiomegaly on CXR - EKG shows tachycardia, troponin wnl - continue to monitor DVT ppx: lovenox Discharge Plan: Home Plan to discharge in: 48 Hours - Advance Directives Does patient have a Living Will: No Does patient have a Durable POA for Healthcare: No - Code Status/Comfort Care Code Status Assessed: Yes (full code ) Critical Care: No Time Spent Managing Pts Care (In Minutes): 70 <Arjun Mayo - Last Filed: 10/28/22 13:07> Physician Review: Patient Assessed, Agree with Above Assessment and Plan <Luke Rossi - Last Filed: 10/28/22 18:08>
[2022-10-28] MEDS ORDERED: OSELTAMIVIR 75 MG CAP PO ONE ×2 (16:19→17:02)
[2022-10-28] MEDS ORDERED: HYDRALAZINE HCL 20 MG/ML VIAL IV PRN (16:29)
[2022-10-28] MEDS: NA CHLORIDE 0.9% 1,000 ML IV SCH (16:29)
[2022-10-28] MEDS ORDERED: ONDANSETRON 4 MG/2 ML VIAL IV PRN (16:29)
[2022-10-28] MEDS: INSULIN -REGULAR HUMAN 50 UNIT/0.5 ML ML SQ SCH ×2 (16:30→23:10)
[2022-10-28] MEDS: METHYLPREDNISOLONE 40 MG INJ IV SCH (17:00)
[2022-10-28] MEDS: ENOXAPARIN 40 MG/0.4 ML SQ SCH (17:00)
[2022-10-28] MEDS: OSELTAMIVIR 75 MG CAP PO SCH (17:00)
[2022-10-28] MEDS ORDERED: METHYLPREDNISOLONE 40 MG INJ ONE (17:02)
[2022-10-28] MEDS ORDERED: ENOXAPARIN 40 MG/0.4 ML SQ ONE (17:03)
[2022-10-28] MEDS ORDERED: INSULIN -REGULAR HUMAN 50 UNIT/0.5 ML ML ONE ×2 (17:23→23:09)
[2022-10-28] MEDS ORDERED: ALBUTEROL 2.5 MG/3 ML NEB SOL ONE (20:02)
[2022-10-28] MEDS ORDERED: BENZONATATE 100 MG CAP PO ONE (22:54)
[2022-10-28] MEDS ORDERED: ACETAMINOPHEN 500 MG TAB ONE (22:55)
[2022-10-28] MEDS: BENZONATATE 100 MG CAP PO PRN (22:56)
[2022-10-28] MEDS: ACETAMINOPHEN 500 MG TAB PO PRN (22:56)
[2022-10-28 23:41] VITALS: BMI 36.9
[2022-10-29] MEDS: METHYLPREDNISOLONE 40 MG INJ IV SCH ×3 (01:00→16:49)
[2022-10-29] MEDS: NA CHLORIDE 0.9% 1,000 ML IV SCH ×3 (02:29→23:00)
[2022-10-29] MEDS ORDERED: NA CHLORIDE 0.9% 1,000 ML ONE (03:23)
[2022-10-29] MEDS ORDERED: METHYLPREDNISOLONE 40 MG INJ ONE ×2 (03:23→09:14)
[2022-10-29] MEDS ORDERED: LEVALBUTEROL 0.63 MG/3 ML NEB ONE (03:54)
[2022-10-29] MEDS ORDERED: IPRATROPIUM BROM 0.5MG/2.5ML ONE ×2 (03:54→09:14)
[2022-10-29] MEDS: LEVALBUTEROL 1.25 MG/3 ML NEB NEB PRN ×2 (04:05→20:00)
[2022-10-29] MEDS: IPRATROPIUM BROM 0.5MG/2.5ML NEB PRN ×2 (04:05→20:00)
[2022-10-29 05:54] LABS: Magnesium 1.8 mg/dL (1.6-2.4); Potassium 4.4 mmol/L (3.5-5.1)
[2022-10-29] MEDS: INSULIN -REGULAR HUMAN 50 UNIT/0.5 ML ML SQ SCH ×4 (07:30→20:40)
[2022-10-29] MEDS: ENOXAPARIN 40 MG/0.4 ML SQ SCH (09:00)
[2022-10-29] MEDS: OSELTAMIVIR 75 MG CAP PO SCH ×2 (09:00→20:09)
[2022-10-29] MEDS ORDERED: INSULIN -REGULAR HUMAN 50 UNIT/0.5 ML ML ONE (09:12)
[2022-10-29] MEDS ORDERED: ENOXAPARIN 40 MG/0.4 ML SQ ONE (09:14)
[2022-10-29] MEDS ORDERED: OSELTAMIVIR 75 MG CAP PO ONE (09:14)
[2022-10-29] MEDS ORDERED: MAGNESIUM SULFATE 1 gm IVPB 1 GM/100 ML BAG IV ONE (12:30)
--- NOTE | 2022-10-29 16:55 | P.PN ---
Subjective Date of Service: 10/29/22 Chief Complaint: asthma exacerbation No acute events overnight. He reports that his shortness of breath is persistent, but is improved compared to yesterday. He reports persistent cough and wheezing. Review of Systems 10-point ROS is otherwise unremarkable Respiratory: Cough, Dry, Shortness of Breath, Wheezing Physical Examination - Vital Signs Temperature: 97.1 F Blood Pressure: 157/77 Pulse: 93 Respirations: 24 Pulse Ox (%): 100 - Physical Exam General: Alert, In no apparent distress, Oriented x3 HEENT: Atraumatic, Mucous membr. moist/pink, EOMI, Sclerae nonicteric Neck: JVD not distended Respiratory: Expiratory wheezes, Inspiratory wheezes Cardiovascular: No edema, Regular rate/rhythm Gastrointestinal: Soft and benign, Non-distended, No tenderness, No rebound, No guarding Musculoskeletal: No clubbing Integumentary: No rashes Neurological: Normal speech, Cranial nerves 3-12 intact, Normal affect Assessment And Plan - Plan # Acute Asthma Exacerbation secondary to Influenza A Infection - Evaluation thus far: - Physical exam = wheezing throughout - Labs= peripheral eosinophilia - Chest x-ray = "no acute focal lung parenchymal process seen. Chronic diffusely prominent interstitial pattern, similar to comparison, could mask edema or infiltrate." - Plan: - Consulted Pulmonary Medicine - recommendations appreciated - Bronchodilators + steroids per Pulm - Started oseltamivir - S/P Magnesium Sulfate 1 g IV x 1 - Consulted Respiratory Therapy - Supplemental oxygen to maintain SpO2 > 92% - Assess inhaler technique one improved from asthma exacerbation # Severe Viral Sepsis likely secondary to Influenza A He meets sepsis criteria based on HR > 90 bpm and RR > 20 breaths/min, and the suspected source is influenza A. Severe sepsis is suspected due to concern for tissue hypoperfusion/organ dysfunction based on lactic acid > 2 mmol/L. - Sepsis order set was initiated - Lactate trend: 2.5 -> 1.8 -> 1.8 - Blood cultures drawn before antibiotics were given - Broad spectrum antimicrobial started: Oseltamivir - In regards to fluids: - 30 mL/kg of IV fluids was not administered given SBP > 90, MAP > 65, lactic acid < 4 # Steroid-Induced Hyperglycemia in Type II Diabetes Mellitus - Correction scale insulin # KDIGO Stage I Acute Kidney Injury (resolved) - Creatinine = 1.44 -> 1.14 - Monitor creatinine and urine output - If worsening, obtain renal ultrasound - Renally dose medications # Hypertension - Hold home meds for now due to concern for viral sepsis Luke Rossi M.D.
--- NOTE | 2022-10-29 17:40 | EKG ---
Test Date: 2022-10-28 Test Time: 10:41:29 Hr Analyst: PATO MEASUREMENT RESULTS: Intervals: Rate: 112 WY: 148 QRSD: 102 QT: 356 QTc: 485 [place]: P: 57 WY: 148 QRS: 51 T: 100 INTERPRETIVE STATEMENTS: Sinus tachycardia T wave abnormality, consider lateral ischemia Abnormal ECG Compared to ECG 07/11/2018 12:21:03 Sinus rhythm no longer present Myocardial infarct finding no longer present T-wave abnormality still present Possible ischemia still present Electronically Signed On 10-29-22 17:38:07 PLYCOR OPERATOR by Kamran Cassidy
[2022-10-29] MEDS: ACETAMINOPHEN 500 MG TAB PO PRN (19:32)
[2022-10-29] MEDS: BENZONATATE 100 MG CAP PO PRN (20:09)
[2022-10-30] MEDS: METHYLPREDNISOLONE 40 MG INJ IV SCH ×3 (01:33→16:28)
[2022-10-30] MEDS: MELATONIN 5 MG TABLET PO PRN ×2 (02:12→19:51)
[2022-10-30 03:26] LABS: Magnesium 1.9 mg/dL (1.6-2.4); Potassium 4.3 mmol/L (3.5-5.1)
[2022-10-30] MEDS: NA CHLORIDE 0.9% 1,000 ML IV SCH (09:02)
[2022-10-30] MEDS: ENOXAPARIN 40 MG/0.4 ML SQ SCH (09:02)
[2022-10-30] MEDS: INSULIN -REGULAR HUMAN 50 UNIT/0.5 ML ML SQ SCH ×4 (09:03→21:46)
[2022-10-30] MEDS: OSELTAMIVIR 75 MG CAP PO SCH ×2 (09:04→19:51)
--- NOTE | 2022-10-30 11:41 | P.CNS ---
Date of Consult: 10/30/22 Reason for Consult: Asthma exacerbation Chief Complaint: asthma exacerbation History of Present Illness: Patient is 52 years of age with a history of asthma not follow-up with any physicians takes albuterol as needed basis has been having worsening cough shor tness of breath and chest discomfort since Tuesday diagnosed positive with influenza admitted with an exacerbation chest x-ray shows some interstitial he feels better today Allergies No Known Allergies Allergy (Verified 10/29/22 09:00) Home Medications: Metformin HCl [Glucophage] 500 mg PO DAILY 05/19/15 lisinopriL [Prinivil*] 20 mg PO DAILY 05/19/15 Albuterol Inhaler [Ventolin Inhaler] 2 puff IH Q6H PRN 10/28/22 Albuterol Sulfate [Albuterol Sulfate 0.083% Neb Soln] 2.5 mg IH PRN PRN 10/29/22 - Past Medical/Surgical History Diabetic: Yes -: HTN -: NIDDM -: ASTHMA -: depression, anxiety -: R/KNEE SX -: R/EYE SX -: HERNIA REPAIR X 2 -: TONSILLECTOMY -: SIMA -: TESTICLE SURGERY - Family History Mother Medical History: Hypertension, Diabetes Father Medical History: Hypertension, Diabetes Sister Medical History: Hypertension - Social History Smoking Status: Current every day smoker Alcohol use: No CD- Drugs: No Caffeine use: Yes Place of Residence: Home Review of Systems 10-point ROS is otherwise unremarkable Respiratory: Cough, Shortness of Breath Physical Examination Temp Pulse Resp BP Pulse Ox 97.1 F 62 14 115/67 97 10/30/22 08:00 10/30/22 08:00 10/30/22 08:00 10/30/22 08:00 10/30/22 08:00 General: Alert, In no apparent distress, Oriented x3 Respiratory: Clear to auscultation bilaterally Cardiovascular: No edema, Regular rate/rhythm Gastrointestinal: Normal bowel sounds - Problems (1) Asthma exacerbation Current Visit: Yes Status: Acute Plan: Patient is 52 years of age active smoker admitted with worsening dyspnea shortness of breath is doing much better x-ray shows some interstitial changes no evidence of active ongoing sepsis patient is influenza A positive vital signs oxygenation stable recommend discharge home on Zithromax prednisone bronchodilator from the hospital and Tamiflu Qualifiers: Asthma severity: moderate
[2022-10-30] MEDS: DULERA 200/5 (MOMETASONE/FORMOTEROL) INHALER IH SCH ×2 (12:39→19:52)
--- NOTE | 2022-10-30 18:25 | P.PN ---
Subjective Date of Service: 10/30/22 Chief Complaint: asthma exacerbation No acute events overnight. He reports that his shortness of breath is gradually improving, but he states that it is worse with exertion. He reports dry cough and wheezing, though his wheezing has improved since admission. He denies chest pain or palpitations. Review of Systems 10-point ROS is otherwise unremarkable Respiratory: Cough, Dry, SOB with Excertion, Wheezing Physical Examination - Vital Signs Temperature: 97.7 F Blood Pressure: 139/78 Pulse: 63 Respirations: 16 Pulse Ox (%): 98 Assessment And Plan - Plan - Physical Exam General: Alert, In no apparent distress, Oriented x3 HEENT: Atraumatic, Mucous membr. moist/pink, EOMI, Sclerae nonicteric Neck: JVD not distended Respiratory: Faint end-expiratory wheezes Cardiovascular: No edema, Regular rate/rhythm, No murmurs, rubs, gallops Gastrointestinal: Soft and benign, Non-distended, No tenderness, No rebound, No guarding Musculoskeletal: No clubbing Integumentary: No rashes Neurological: Normal speech, Cranial nerves 3-12 intact, Normal affect # Acute Asthma Exacerbation secondary to Influenza A Infection - Evaluation thus far: - Physical exam = wheezing throughout - improved compared to yesterday - Chest x-ray = "no acute focal lung parenchymal process seen. Chronic diffusely prominent interstitial pattern, similar to comparison, could mask edema or infiltrate." - Plan: - Consulted Pulmonary Medicine - recommendations appreciated - Bronchodilators + steroids per Pulm - Started oseltamivir - S/P Magnesium Sulfate 1 g IV x 1 - Consulted Respiratory Therapy - Supplemental oxygen to maintain SpO2 > 92% - Assess inhaler technique one improved from asthma exacerbation # Severe Viral Sepsis likely secondary to Influenza A He meets sepsis criteria based on HR > 90 bpm and RR > 20 breaths/min, and the suspected source is influenza A. Severe sepsis is suspected due to concern for tissue hypoperfusion/organ dysfunction based on lactic acid > 2 mmol/L. - Sepsis order set was initiated - Lactate trend: 2.5 -> 1.8 -> 1.8 - Blood cultures drawn before antibiotics were given - Broad spectrum antimicrobial started: Oseltamivir - In regards to fluids: - 30 mL/kg of IV fluids was not administered given SBP > 90, MAP > 65, lactic acid < 4 # Steroid-Induced Hyperglycemia in Type II Diabetes Mellitus - Correction scale insulin # KDIGO Stage I Acute Kidney Injury (resolved) - Creatinine = 1.44 -> 1.14 -> 1.08 - Monitor creatinine and urine output - If worsening, obtain renal ultrasound - Renally dose medications # Hypertension - Hold home meds for now due to concern for viral sepsis Luke Rossi M.D.
[2022-10-30] MEDS: BENZONATATE 100 MG CAP PO PRN (19:51)
[2022-10-31 03:06] VITALS: O2SAT 97
[2022-10-31 04:14] LABS: Magnesium 1.9 mg/dL (1.6-2.4); Potassium 3.8 mmol/L (3.5-5.1)
[2022-10-31] MEDS: OSELTAMIVIR 75 MG CAP PO SCH (08:49)
[2022-10-31] MEDS: ENOXAPARIN 40 MG/0.4 ML SQ SCH (08:49)
[2022-10-31] MEDS: INSULIN -REGULAR HUMAN 50 UNIT/0.5 ML ML SQ SCH ×2 (08:50→11:57)
[2022-10-31] MEDS: DULERA 200/5 (MOMETASONE/FORMOTEROL) INHALER IH SCH (08:55)
[2022-10-31] MEDS ORDERED: METHYLPREDNISOLONE 40 MG INJ IV SCH (09:00)
[2022-10-31] MEDS ORDERED: POTASSIUM CL SA 10 MEQ TAB PO ONE (09:00)
[2022-10-31 12:37] VITALS: BP 138/83; TEMP 97.4
--- NOTE | 2022-10-31 17:47 | P.DS ---
Admission Date: 10/28/22 Discharge Date: 10/31/22 Disposition: ROUTINE DISCHARGE Discharge Condition: GOOD Reason for Admission: asthma exacerbation Consultations: 1. Pulmonary Medicine Hospital Course: DIAGNOSES: # Acute Asthma Exacerbation secondary to Influenza A Infection # Severe Viral Sepsis likely secondary to Influenza A # Steroid-Induced Hyperglycemia in Type II Diabetes Mellitus # KDIGO Stage I Acute Kidney Injury (resolved) # Hypertension HOSPITAL COURSE: Mr. Chris Jama is a pleasant 52 year old male with a past medical history significant for asthma, type II diabetes mellitus, and hypertension who was admitted to the [facility] on 10/28/2022 for shortness of breath. He was admitted to the Medicine service. Upon further evaluation, he was found to have an acute asthma exacerbation and severe viral sepsis secondary to influenza A infection. Pulmonary Medicine was consulted and he was evaluated by Dr. Charles. He was treated with bronchodilators, steroids, and oseltamivir, with significant improvement in his symptoms. Over the course of his hospitalization, his wheezing and shortness of breath had completely resolved. Dr. Charles has cleared him to be discharged home with outpatient follow-up. On 10/31/2022, he was seen on morning rounds and deemed medically stable for discharge. He was discharged with instructions to schedule follow-up appointments with his PCP and with Pulmonary Medicine (Dr. Charles). He was provided prescriptions for prednisone, benzonatate, oseltamivir, Dulera. He was given the opportunity to ask questions and reported no further questions. Furthermore, all questions were answered to the best of my ability. A copy of this discharge summary will be sent to the above providers to facilitate continuity of care. Today, I personally spent 25 minutes on his case, of which greater than 50% of the time was spent in patient education, counseling, and coordination of care as described above. - Physical Exam General: Alert, In no apparent distress, Oriented x3 HEENT: Atraumatic, Mucous membr. moist/pink, EOMI, Sclerae nonicteric Neck: JVD not distended Respiratory: Clear to auscultation bilaterally, without wheezes, rhonchi, or rales. Cardiovascular: No edema, Regular rate/rhythm, No murmurs, rubs, gallops Gastrointestinal: Soft and benign, Non-distended, No tenderness, No rebound, No guarding Musculoskeletal: No clubbing Integumentary: No rashes Neurological: Normal speech, Cranial nerves 3-12 intact, Normal affect Vital Signs/Physical Exam: Temp Pulse Resp BP Pulse Ox 97.4 F 64 18 138/83 99 10/31/22 12:00 10/31/22 12:00 10/31/22 12:00 10/31/22 12:00 10/31/22 12:00 Laboratory Data at Discharge: WBC 6.60 K/uL (4.3-10.9) 10/28/22 10:36 Hgb 15.1 g/dL (13.6-17.9) 10/28/22 10:36 Hct 43.6 % (39.6-49.0) 10/28/22 10:36 Plt Count 195 K/uL (152-406) 10/28/22 10:36 PT 11.5 SECONDS (9.5-12.5) 10/28/22 10:36 INR 1.05 10/28/22 10:36 APTT 30.2 SECONDS (24.3-36.9) 10/28/22 10:36 Sodium 132 mmol/L (136-145) L 10/31/22 02:58 Potassium 3.8 mmol/L (3.5-5.1) 10/31/22 02:58 BUN 26 mg/dL (7-18) H 10/31/22 02:58 Creatinine 1.19 mg/dL (0.70-1.30) 10/31/22 02:58 Glucose 354 mg/dL (74-106) H 10/31/22 02:58 Phosphorus 4.2 mg/dL (2.5-4.9) 10/30/22 02:15 Magnesium 1.9 mg/dL (1.6-2.4) 10/31/22 02:58 Total Bilirubin 1.0 mg/dL (0.2-1.0) 10/28/22 10:36 AST 26 U/L (15-37) 10/28/22 10:36 ALT 35 U/L (12-78) 10/28/22 10:36 Alkaline Phosphatase 83 U/L (45-117) 10/28/22 10:36 Home Medications: Metformin HCl [Glucophage] 500 mg PO DAILY 05/19/15 lisinopriL [Prinivil*] 20 mg PO DAILY 05/19/15 Albuterol Inhaler [Ventolin Inhaler*] 2 puff IH Q6H PRN 10/28/22 Albuterol Sulfate [Albuterol Sulfate 0.083% Neb Soln] 2.5 mg IH PRN PRN 10/29/22 Benzonatate [Tessalon Perle*] 100 mg PO TID PRN 7 Days #20 cap 10/31/22 Mometasone/Formoterol [Dulera 200 Mcg-5 Mcg Inhaler] 2 puff IH BID #1 inhaler 10/31/22 Oseltamivir [Tamiflu*] 75 mg PO BID 3 Days #6 cap 10/31/22 predniSONE [Prednisone*] 20 mg PO BID 3 Days #6 tab 10/31/22 New Medications: Mometasone/Formoterol [Dulera 200 Mcg-5 Mcg Inhaler] 2 puff IH BID #1 inhaler predniSONE [Prednisone*] 20 mg PO BID 3 Days #6 tab Oseltamivir [Tamiflu*] 75 mg PO BID 3 Days #6 cap Benzonatate [Tessalon Perle*] 100 mg PO TID PRN 7 Days #20 cap PRN Reason: Cough Physician Discharge Instructions: 1. Please call and schedule a follow-up appointment with your PCP in 3-5 days 2. Please call and schedule a follow-up appointment with Pulmonology (Dr. Charles) in 5-7 days Diet: ADA Activity: Ad elias Followup: Cisco Charles MD [ACTIVE - CAN ADMIT] - (Call to schedule appointment) Time spent managing pt's care (in minutes): 25
== END 2022-10-31 13:29 | disposition home or self-care (01) | DRG 872 ==
LOC: ER 10:13 → ERHOLD 12:53 → 2ND 10-29 11:07
PROVIDERS: ADMIT Internal Medicine; ATTEND Internal Medicine
DX: A41.89 Other specified sepsis (principal); J45.901 Unspecified asthma with (acute) exacerbation; N17.9 Acute kidney failure, unspecified; R65.20 Severe sepsis without septic shock; I10 Essential (primary) hypertension; F32.A Depression, unspecified; F41.9 Anxiety disorder, unspecified; J10.1 Influenza due to other identified influenza virus with other respiratory manifestations; Z20.822 Contact with and (suspected) exposure to COVID-19; B97.89 Other viral agents as the cause of diseases classified elsewhere; E09.65 Drug or chemical induced diabetes mellitus with hyperglycemia; T38.0X5A Adverse effect of glucocorticoids and synthetic analogues, initial encounter; Z87.891 Personal history of nicotine dependence
CPT/HCPCS: 0240U; 36415; 71045; 80048; 80076; 82947; 83605; 83735; 83880; 84100; 84484; 85025; 85379; 85610; 85730; 87040; 93005; 94760; 96365; 96375; 99284; J1650; J1815; J2920; J2930; J3475; J3535; J7030; J7613; J7614; J7644

== ENCOUNTER 2023-04-07 09:35 | Emergency (ER) | payer OTHER, SELFPAY ==
[2023-04-07] MEDS ORDERED: ALBUTEROL 2.5 MG/3 ML NEB SOL ONE (09:52)
[2023-04-07] MEDS ORDERED: NA CHLORIDE 0.9% 1,000 ML ONE (09:52)
[2023-04-07] MEDS ORDERED: IPRATROPIUM BROM 0.5MG/2.5ML ONE (09:52)
[2023-04-07] MEDS ORDERED: ACETAMINOPHEN 500 MG TAB ONE (09:52)
[2023-04-07] MEDS ORDERED: predniSONE 20 MG TAB ONE (09:52)
[2023-04-07 10:20] LABS: Absolute Lymphocytes (CBC) 4.1 K/uL (0.7-4.9); Hematocrit 44.7 % (39.6-49.0); Lymphocytes % 44.6 % (15.3-44.8); MCV 87.4 fL (80-100); MPV 8.6 fL (7.6-11.3); RBC Red Blood Cell Count 5.12 M/uL (4.33-5.43)
--- NOTE | 2023-04-07 10:28 | RAD REPORT ---
EXAM DESCRIPTION: Jesus Single View04/07/2023 10:22 am CLINICAL HISTORY: Shortness of breath COMPARISON: 2021 FINDINGS: Lungs are mildly to moderately hyperaerated The lungs appear clear of acute infiltrate. The heart is normal size IMPRESSION: No acute abnormalities displayed
[2023-04-07 10:43] LABS: Albumin 4.8 g/dL (3.4-5.0); Bilirubin Total 0.6 mg/dL (0.2-1.0); Potassium 3.7 mEq/L (3.5-5.1); Protein, Total 8.3 g/dL (6.4-8.2); Troponin High Sensitivity 58.2 pg/mL (<58.9)
--- NOTE | 2023-04-07 11:29 | ER ---
Nurse's Notes [facility] Name: Chris Jama Age: 53 yrs Sex: Male : 1970 Arrival Date: 04/07/2023 Time: 09:35 Bed 18 Private MD: Diagnosis: COPD/ Chronic obstructive pulmonary disease, unspecified Presentation: 04/07 09:39 Chief complaint: EMS states: toned out for SOB since this morning, also c/o headache. eh3 Pt felt dizzy yesterday after mowing lawn. Hx of asthma and COPD. EMS gave breathing treatment en route to ED. Coronavirus screen: Vaccine status: Patient reports receiving the 2nd dose of the covid vaccine. Ebola Screen: No symptoms or risks identified at this time. Initial Sepsis Screen: Does the patient meet any 2 criteria? No. Patient's initial sepsis screen is negative. Does the patient have a suspected source of infection? No. Patient's initial sepsis screen is negative. Risk Assessment: Do you want to hurt yourself or someone else? Patient reports no desire to harm self or others. Onset of symptoms was April 07, 2023. 09:39 Method Of Arrival: EMS: [place] [id number] 09:39 Acuity: JAELYN 3 eh3 Triage Assessment: 09:41 General: Appears in no apparent distress. uncomfortable, Behavior is cooperative, eh3 appropriate for age, anxious. Pain: Complains of pain in head and chest. EENT: No signs and/or symptoms were reported regarding the EENT system. Neuro: Level of Consciousness is awake, alert, obeys commands, Oriented to person, place, time, situation. Cardiovascular: Capillary refill < 3 seconds Patient's skin is warm and dry. Respiratory: Reports shortness of breath at rest air hunger labored breathing Onset: The symptoms/episode began/occurred this morning, the patient has moderate shortness of breath. GI: Abdomen is round non-distended. : No signs and/or symptoms were reported regarding the genitourinary system. Derm: Skin is pink, warm \T\ dry. Derm: Skin is healthy with good turgor. Musculoskeletal: Circulation, motion, and sensation intact. Range of motion: intact in all extremities. Historical: - Allergies: 09:41 NKDA; eh3 - Home Meds: 09:41 Albuterol Inhl [Active]; lisinopril 20 mg Oral tab 1 tab once daily [Active]; metformin eh3 500 mg Oral tr24 1 tab once daily [Active]; - PMHx: 09:41 Asthma; Diabetes - NIDDM; Hypertension; eh3 - Immunization history:: Adult Immunizations up to date. - Social history:: Smoking status: Patient reports the use of cigarette tobacco products, denies chronic smoking, but will smoke occasionally, Patient/guardian denies using alcohol. - Family history:: not pertinent. Screenin:40 [facility] ED Fall Risk Assessment (Adult) Score/Fall Risk Level 0 - 2 = Low Risk. Abuse eh3 screen: Denies threats or abuse. Denies injuries from another. Nutritional screening: No deficits noted. Tuberculosis screening: No symptoms or risk factors identified. Assessment: :40 Reassessment: No changes from previously documented assessment. See triage assessment. eh3 Cardiovascular: Rhythm is sinus rhythm. Respiratory: Airway is patent Respiratory effort is even, labored, Respiratory pattern is regular, symmetrical, Breath sounds with wheezes bilaterally. 10:00 Reassessment: Patient appears in no apparent distress at this time. Patient and/or eh3 family updated on plan of care and expected duration. Pain level reassessed. Patient is alert, oriented x 3, equal unlabored respirations, skin warm/dry/pink. 11:00 Reassessment: Patient appears in no apparent distress at this time. Patient and/or eh3 family updated on plan of care and expected duration. Pain level reassessed. Patient is alert, oriented x 3, equal unlabored respirations, skin warm/dry/pink. Vital Signs: 09:39 BP 118 / 79; Pulse 84; Resp 22; Temp 98.2(IR); Pulse Ox 95% on R/A; Weight 90.72 kg; eh3 Height 5 ft. 9 in. ; 10:19 BP 125 / 73; Pulse 73; Resp 13; Pulse Ox 93% on R/A; eh3 11:00 BP 135 / 53; Pulse 76; Resp 20; Pulse Ox 96% on R/A; eh3 09:39 Body Mass Index 29.53 (90.72 kg, 175.26 cm) 3 ED Course: 09:38 Patient arrived in ED. eh3 09:38 Deric Gomes MD is Attending Physician. rt 09:38 Joy, Sydnee, RN is Primary Nurse. 3 09:40 Patient has correct armband on for positive identification. Bed in low position. Call 3 light in reach. Side rails up X2. Client placed on continuous cardiac and pulse oximetry monitoring. NIBP monitoring applied. Door closed. Noise minimized. Lights dimmed. Warm blanket given. 09:41 Triage completed. eh3 09:41 Arm band placed on. 3 10:00 Inserted saline lock: 20 gauge in right antecubital area, using aseptic technique. 3 Blood collected. 10:24 Chest Single View XRAY In Process Unspecified. EDMS 11:56 No provider procedures requiring assistance completed. IV discontinued, intact, eh3 bleeding controlled, No redness/swelling at site. Pressure dressing applied. Administered Medications: 09:50 Drug: predniSONE PO 40 mg Route: PO; 3 11:30 Follow up: Response: No adverse reaction 3 09:50 Drug: Acetaminophen PO 1000 mg Route: PO; 3 11:30 Follow up: Response: Pain is decreased 3 10:00 Drug: NS 0.9% IV 1000 ml Route: IV; Rate: 1 bolus; Site: right antecubital; 3 11:30 Follow up: IV Status: Completed infusion; IV Intake: 1000ml 3 10:05 Drug: DuoNeb Nebulize (3:1) (2.5 mg - 0.5 mg) 3 ml Route: Nebulizer; 3 10:19 Follow up: Response: No adverse reaction 3 Medication: 11:56 VIS not applicable for this client. eh3 Intake: 11:30 IV: 1000ml; Total: 1000ml. 3 Outcome: 11:28 Discharge ordered by . rt 11:59 Discharged to home ambulatory. eh3 11:59 Condition: stable 11:59 Discharge instructions given to patient, Instructed on discharge instructions, follow up and referral plans. medication usage, Demonstrated understanding of instructions, follow-up care, medications, Prescriptions given X 3. 11:59 Patient left the ED. 3 Signatures: Dispatcher [employer] [facility] Sydnee Joy RN RN 3 Deric Gomes MD MD rt Corrections: (The following items were deleted from the chart) 10:10 10:09 Sydnee Joy RN is Primary Nurse. 3 [facility] 10:11 09:41 Social history: Smoking status: Patient denies any tobacco usage or history of. eh3 Patient/guardian denies using alcohol, eh3
--- NOTE | 2023-04-07 11:29 | EDPHYS ---
Physician Documentation [facility] Name: Chris Jama Age: 53 yrs Sex: Male : 1970 Arrival Date: 04/07/2023 Time: 09:35 Bed 18 Private MD: ED Physician Deric Gomes HPI: 04/07 09:50 This 53 yrs old Male presents to ER via EMS with complaints of Shortness Of Breath. rt 09:50 Patient with history of COPD presents to the ED with dyspnea. Patient states that he rt was well when he went to bed. Woke up with wheezing, shortness of breath. Patient tried to use his nebulizer which she states is not functioning properly. Patient called EMS, vital signs are stable, received a breathing treatment in route with symptomatic improvement. Still states that he is short of breath. Denies other acute complaints at this time. Symptoms are moderate in severity, no other aggravating or alleviating factors.. Historical: - Allergies: 09:41 NKDA; eh3 - Home Meds: 09:41 Albuterol Inhl [Active]; lisinopril 20 mg Oral tab 1 tab once daily [Active]; metformin eh3 500 mg Oral tr24 1 tab once daily [Active]; - PMHx: 09:41 Asthma; Diabetes - NIDDM; Hypertension; eh3 - Immunization history:: Adult Immunizations up to date. - Social history:: Smoking status: Patient reports the use of cigarette tobacco products, denies chronic smoking, but will smoke occasionally, Patient/guardian denies using alcohol. - Family history:: not pertinent. ROS: 09:50 Constitutional: Negative for fever, chills, and weight loss, Neck: Negative for injury, rt pain, and swelling, Cardiovascular: Negative for chest pain, palpitations, and edema, Abdomen/GI: Negative for abdominal pain, nausea, vomiting, diarrhea, and constipation, MS/Extremity: Negative for injury and deformity, Skin: Negative for injury, rash, and discoloration, Neuro: Negative for headache, weakness, numbness, tingling, and seizure, Psych: Negative for depression, anxiety, suicide ideation, homicidal ideation, and hallucinations. 09:50 Respiratory: Positive for cough, shortness of breath, wheezing. Exam: 09:50 Constitutional: This is a well developed, well nourished patient who is awake, alert, rt and in no acute distress. Head/Face: Normocephalic, atraumatic. Neck: Trachea midline, no thyromegaly or masses palpated, and no cervical lymphadenopathy. Supple, full range of motion without nuchal rigidity, or vertebral point tenderness. No Meningismus. Chest/axilla: Normal chest wall appearance and motion. Nontender with no deformity. No lesions are appreciated. Cardiovascular: Regular rate and rhythm with a normal S1 and S2. No gallops, murmurs, or rubs. Normal PMI, no JVD. No pulse deficits. Abdomen/GI: Soft, non-tender, with normal bowel sounds. No distension or tympany. No guarding or rebound. No evidence of tenderness throughout. MS/ Extremity: Pulses equal, no cyanosis. Neurovascular intact. Full, normal range of motion. Neuro: Awake and alert, GCS 15, oriented to person, place, time, and situation. Cranial nerves II-XII grossly intact. Motor strength 5/5 in all extremities. Sensory grossly intact. Cerebellar exam normal. Normal gait. Psych: Awake, alert, with orientation to person, place and time. Behavior, mood, and affect are within normal limits. 09:50 Respiratory: Wheezes and diminished breath sounds heard on all lung [place], mild respiratory distress. 10:34 ECG was reviewed by the Attending Physician. rt Vital Signs: 09:39 BP 118 / 79; Pulse 84; Resp 22; Temp 98.2(IR); Pulse Ox 95% on R/A; Weight 90.72 kg; eh3 Height 5 ft. 9 in. ; 10:19 BP 125 / 73; Pulse 73; Resp 13; Pulse Ox 93% on R/A; eh3 11:00 BP 135 / 53; Pulse 76; Resp 20; Pulse Ox 96% on R/A; eh3 09:39 Body Mass Index 29.53 (90.72 kg, 175.26 cm) 3 MDM: 09:38 Patient medically screened. rt 11:34 Differential diagnosis: CHF exacerbation, Chronic Obstructive Pulmonary Disease rt pneumonia, Pneumothorax Pulmonary Embolism. Data reviewed: vital signs, nurses notes, lab test result(s), EKG, radiologic studies. Consideration of Admission/Observation Escalation of care including admission/observation considered. EKG shows nonspecific changes, however, does appear consistent with prior EKG. Creatinine is also mildly elevated, not meeting criteria for ALEJANDRINA, he has had had similar creatinines previously. Does not require admission for ALEJANDRINA. Patient with significant symptomatic improvement in ability treatments in the ED, is stable for outpatient care, return precautions discussed.. Independent interpretation of the following test(s) in the Emergency Department X-Ray: My interpretation is No consolidation seen on my interpretation of the x-ray images. Test considered but Not performed: CT: Low suspicion for PE, CT angiogram not indicated. Counseling: I had a detailed discussion with the patient and/or guardian regarding: the historical points, exam findings, and any diagnostic results supporting the discharge/admit diagnosis, lab results, radiology results, the need for outpatient follow up, to return to the emergency department if symptoms worsen or persist or if there are any questions or concerns that arise at home. 04/07 09:40 Order name: CBC with Diff; Complete Time: 10:29 rt 04/07 09:40 Order name: CMP; Complete Time: 10:45 rt 04/07 09:40 Order name: Troponin High Sensitivity; Complete Time: 10:45 rt 04/07 09:40 Order name: BNP; Complete Time: 10:45 rt 04/07 09:40 Order name: Chest Single View XRAY; Complete Time: 10: rt 04/07 09:40 Order name: EKG; Complete Time: : rt 04/07 09:40 Order name: EKG - Nurse/Tech; Complete Time: 10: rt EC:34 Rate is 75 beats/min. Rhythm is regular, Normal Sinus Rhythm with No ectopy. QRS [place] rt is Normal. SD interval is normal. QRS interval is normal. QT interval is normal. Clinical impression: NSR w/ Non-specific ST/T Changes. Administered Medications: 09:50 Drug: predniSONE PO 40 mg Route: PO; 3 11:30 Follow up: Response: No adverse reaction eh3 09:50 Drug: Acetaminophen PO 1000 mg Route: PO; 3 11:30 Follow up: Response: Pain is decreased eh3 10:00 Drug: NS 0.9% IV 1000 ml Route: IV; Rate: 1 bolus; Site: right antecubital; 3 11:30 Follow up: IV Status: Completed infusion; IV Intake: 1000ml eh3 10:05 Drug: DuoNeb Nebulize (3:1) (2.5 mg - 0.5 mg) 3 ml Route: Nebulizer; eh3 10:19 Follow up: Response: No adverse reaction eh3 Disposition Summary: 04/07/23 11:28 Discharge Ordered Location: Home rt Problem: new rt Symptoms: have improved rt Condition: Stable rt Diagnosis - COPD/ Chronic obstructive pulmonary disease, unspecified rt Followup: rt - With: Private Physician - When: 2 - 3 days - Reason: Discharge Instructions: - Discharge Summary Sheet rt - Chronic Obstructive Pulmonary Disease rt Forms: - Medication Reconciliation Form rt - Thank You Letter rt - Antibiotic Education rt - Prescription Opioid Use rt Prescriptions: - albuterol sulfate 90 mcg/actuation Inhalation HFA Aerosol Inhaler - inhale 4 inhalation by INHALATION route every 4 hours as needed for shortness rt of breath or wheezing; 2 Each; Refills: 0, Product Selection Permitted - Tessalon Perles 100 mg Oral Capsule - take 1 capsule by ORAL route every 8 hours As needed; 15 capsule; Refills: 0, rt Product Selection Permitted - Prednisone 20 mg Oral Tablet - take 2 tablets by ORAL route once daily for 4 days; 8 tablet; Refills: 0, rt Product Selection Permitted Signatures: Dispatcher [employer] Sydnee De Dios RN RN eh3 Deric Gomes MD MD rt Corrections: (The following items were deleted from the chart) 10:11 09:41 Social history: Smoking status: Patient denies any tobacco usage or history of. eh3 Patient/guardian denies using alcohol, eh3
[2023-04-07 12:10] VITALS: TEMP 98.2
[2023-04-07 12:21] VITALS: BP 135/53; O2SAT 96
--- NOTE | 2023-04-08 13:28 | EKG ---
Test Date: 2023-04-07 Test Time: 09:51:29 [employer]: NAVA MEASUREMENT RESULTS: Intervals: Rate: 75 MA: 164 QRSD: 110 QT: 402 QTc: 448 [place]: P: 40 MA: 164 QRS: 59 T: 167 INTERPRETIVE STATEMENTS: Normal sinus rhythm Septal infarct, age undetermined Cannot rule out Inferior infarct, age undetermined ST & T wave abnormality, consider lateral ischemia Abnormal ECG Compared to ECG 10/28/2022 10:41:29 Myocardial infarct finding now present ST (T wave) deviation now present Sinus tachycardia no longer present T-wave abnormality no longer present Possible ischemia still present Electronically Signed On 04-08-23 13:26:17 CDT by Kamran Cassidy
== END 2023-04-07 11:59 | disposition home or self-care (01) ==
LOC: ER 09:35
DX: J44.9 Chronic obstructive pulmonary disease, unspecified (principal); F17.210 Nicotine dependence, cigarettes, uncomplicated; I10 Essential (primary) hypertension
CPT/HCPCS: 93005; 85025; 36415; 84484; 80053; 83880; 71045; 94640; 96360; 99285; J7512; J7613; J7644; J7030

== ENCOUNTER 2023-05-03 07:34 | Emergency (ER) | payer OTHER ==
[2023-05-03 08:02] LABS: Absolute Lymphocytes (CBC) 4.6 K/uL (0.7-4.9); Hematocrit 38.7 % (39.6-49.0); Lymphocytes % 47.7 % (15.3-44.8); MCV 88.1 fL (80-100); MPV 8.8 fL (7.6-11.3); RBC Red Blood Cell Count 4.39 M/uL (4.33-5.43)
[2023-05-03 08:20] LABS: Potassium 3.5 mEq/L (3.5-5.1); Troponin High Sensitivity 24.5 pg/mL (<58.9)
[2023-05-03] MEDS ORDERED: ALBUTEROL 2.5 MG/3 ML NEB SOL ONE (08:40)
--- NOTE | 2023-05-03 09:13 | RAD REPORT ---
EXAM DESCRIPTION: RAD - Chest Single View - 05/03/2023 9:07 am CLINICAL HISTORY: SOB COMPARISON: Chest Single View dated 04/07/2023; Chest Single View dated 10/28/2022; Chest Pa And Lat ( 2 Views) dated 12/29/2018; Chest Single View dated 07/11/2018; Chest Single View dated 05/30/2016 FINDINGS: Lines: None. Lungs: No evidence of edema or pneumonia. Pleural: No significant pleural effusions or pneumothorax. Cardiac: The heart size is within normal limits. Mediastinum: Within normal limits. Bones: No acute fractures. Other: None IMPRESSION: No acute cardiopulmonary disease.
--- NOTE | 2023-05-03 09:35 | ER ---
Nurse's Notes [facility] Name: Chris Jama Age: 53 yrs Sex: Male : 1970 Arrival Date: 05/03/2023 Time: 07:34 Bed 6 Private MD: Diagnosis: COPD/ Chronic obstructive pulmonary disease with (acute) exacerbation;Wheezing;Essential (primary) hypertension Presentation: 05/03 07:38 Chief complaint: EMS states: Pt c/o SOB that started this morning, hx of asthma and ph COPD, attempted to use rescue inhaler but was empty. Also reports chest tightness and dizziness upon standing, VSS for EMS, A\T\A tx and 125 Solu-Medrol administered, 18G to LAC. Coronavirus screen: Vaccine status: Patient reports receiving the 2nd dose of the covid vaccine. Ebola Screen: No symptoms or risks identified at this time. Initial Sepsis Screen: Does the patient meet any 2 criteria? No. Patient's initial sepsis screen is negative. Does the patient have a suspected source of infection? No. Patient's initial sepsis screen is negative. Risk Assessment: Do you want to hurt yourself or someone else? Patient reports no desire to harm self or others. Onset of symptoms was May 03, 2023. 07:38 Method Of Arrival: [facility] 07:38 Acuity: JAELYN 3 ph Triage Assessment: 09:44 General: Appears in no apparent distress. comfortable, Behavior is calm, cooperative, ld1 appropriate for age. Pain: Denies pain. EENT: No signs and/or symptoms were reported regarding the EENT system. Neuro: Level of Consciousness is awake, alert, obeys commands, Oriented to person, place, time, situation. Cardiovascular: Capillary refill < 3 seconds Patient's skin is warm and dry. Rhythm is sinus rhythm. Respiratory: Reports shortness of breath at rest on exertion Airway is patent Respiratory effort is even, unlabored, Onset: The symptoms/episode began/occurred suddenly, the patient has moderate shortness of breath. GI: Abdomen is round non-distended. : No signs and/or symptoms were reported regarding the genitourinary system. Derm: No signs and/or symptoms reported regarding the dermatologic system. Musculoskeletal: No signs and/or symptoms reported regarding the musculoskeletal system. Historical: - Allergies: 07:41 NKDA; ph - PMHx: 07:41 Asthma; Diabetes - NIDDM; Hypertension; COPD; Gout; ph - Immunization history:: Adult Immunizations unknown. - Social history:: Smoking status: Patient reports the use of cigarette tobacco products, 2 cigarettes per day. Screenin:42 [facility] ED Fall Risk Assessment (Adult) History of falling in the last 3 months, bp including since admission No falls in past 3 months (0 pts). Abuse screen: Denies threats or abuse. Denies injuries from another. Nutritional screening: No deficits noted. Tuberculosis screening: No symptoms or risk factors identified. Assessment: 07:42 General: SEE TRIAGE NOTE. bp 09:45 Respiratory: Airway is patent Respiratory effort is even, unlabored, Breath sounds are ld1 clear bilaterally. Vital Signs: 07:38 BP 165 / 101; Pulse 74; Resp 26; Temp 97.8; Pulse Ox 100% on R/A; Weight 90.72 kg; ph Height 5 ft. 9 in. ; 09:29 BP 159 / 84; Pulse 84; Resp 18; Pulse Ox 95% on R/A; ld1 07:38 Body Mass Index 29.53 (90.72 kg, 175.26 cm) ph ED Course: 07:38 Patient arrived in ED. ph 07:38 Nicholas Leigh DO is Attending Physician. ms3 07:41 Triage completed. ph 07:42 Leopoldo Gallegos, RN is Primary Nurse. bp 07:42 Arm band placed on Patient placed in an exam room, on a stretcher, on monitor technician, ph on pulse oximetry. 07:42 Patient has correct armband on for positive identification. Bed in low position. Call bp light in reach. Side rails up X2. 07:42 Maintain EMS IV. Dressing intact. Good blood return noted. Site clean \T\ dry. Gauge \T\ bp site: 18 GA LEFT AC. 09:09 XRAY Chest (1 view) In Process Unspecified. EDMS 09:33 Javon Oates DO is Referral Physician. ms3 09:45 No provider procedures requiring assistance completed. IV discontinued, intact, ld1 bleeding controlled, No redness/swelling at site. Administered Medications: 08:36 Drug: Albuterol Inhalation 2.5 mg Route: Inhalation; bp 08:37 Drug: Albuterol Inhalation 2.5 mg Route: Inhalation; bp Medication: 09:46 VIS not applicable for this client. ld1 Outcome: 09:34 Discharge ordered by . ms3 09:45 Discharged to home ambulatory. ld1 :45 Condition: stable 09:45 Discharge instructions given to patient, Instructed on discharge instructions, follow up and referral plans. medication usage, Demonstrated understanding of instructions, follow-up care, medications, Prescriptions given X 2. :46 Patient left the ED. ld1 Signatures: Dispatcher [employer] EDBrooke Gordon, RN RN Leopoldo Gallegos RN RN bp Nicholas Leigh, DO ms3 Laurence Leigh RN RN ld1
--- NOTE | 2023-05-03 09:35 | EDPHYS ---
Physician Documentation [facility] Name: Chris Jama Age: 53 yrs Sex: Male : 1970 Arrival Date: 05/03/2023 Time: 07:34 Bed 6 Private MD: ED Physician Nicholas Leigh HPI: 05/03 08:11 This 53 yrs old Male presents to ER via EMS with complaints of Breathing Difficulty. ms3 08:11 53-year-old male with past medical history of asthma, diabetes, hypertension, COPD ms3 presents via [facility] for respiratory distress. Patient states he was out of his MDI and unable to control his symptoms this morning. EMS states they administered 125 mg Solu-Medrol and gave 1 DuoNeb. Patient states this is typical of his asthma exacerbations. Patient states he is having 8/10 chest tightness. Historical: - Allergies: 07:41 NKDA; ph - PMHx: 07:41 Asthma; Diabetes - NIDDM; Hypertension; COPD; Gout; ph - Immunization history:: Adult Immunizations unknown. - Social history:: Smoking status: Patient reports the use of cigarette tobacco products, 2 cigarettes per day. ROS: 08:11 Constitutional: Negative for fever, and chills. ENT: Negative for injury, pain, and ms3 discharge, Neck: Negative for injury, pain, and swelling, Cardiovascular: Negative for chest pain, and palpitations. 08:11 Abdomen/GI: Negative for abdominal pain, nausea, vomiting, diarrhea, and constipation, MS/Extremity: Negative for injury and deformity, Skin: Negative for injury, rash, and discoloration. 08:11 Respiratory: Positive for shortness of breath. 08:11 All other systems are negative. Exam: 08:10 ECG was reviewed by the Attending Physician. ms3 08:11 Constitutional: This is a well developed, well nourished patient who is awake, alert, ms3 and in no acute distress. Head/Face: Normocephalic, atraumatic. Neck: Trachea midline, no cervical lymphadenopathy. Supple, full range of motion without nuchal rigidity, or vertebral point tenderness. No Meningismus. Chest/axilla: Normal chest wall appearance and motion. Nontender with no deformity. Cardiovascular: Regular rate and rhythm with a normal S1 and S2. No gallops, murmurs, or rubs. Normal PMI, no JVD. No pulse deficits. Abdomen/GI: Soft, non-tender, with normal bowel sounds. No distension or tympany. No guarding or rebound. No evidence of tenderness throughout. Skin: Warm, dry with normal turgor. Normal color with no rashes, no lesions, and no evidence of cellulitis. MS/ Extremity: Pulses equal, no cyanosis. Neurovascular intact. Full, normal range of motion. 08:26 Respiratory: mild respiratory distress is noted, Respirations: no acute changes, ms3 Breath sounds: wheezing: Vital Signs: 07:38 BP 165 / 101; Pulse 74; Resp 26; Temp 97.8; Pulse Ox 100% on R/A; Weight 90.72 kg; ph Height 5 ft. 9 in. ; 09:29 BP 159 / 84; Pulse 84; Resp 18; Pulse Ox 95% on R/A; ld1 07:38 Body Mass Index 29.53 (90.72 kg, 175.26 cm) ph MDM: 07:38 Patient medically screened. ms3 08:11 Differential diagnosis: asthma, CHF exacerbation, Chronic Obstructive Pulmonary Disease ms3 Myocardial Infarction Pulmonary Embolism. 11:26 Data reviewed: vital signs, nurses notes, lab test result(s), EKG, radiologic studies, ms3 and as a result, I will discharge patient. I considered the following discharge prescriptions or medication management in the emergency department Medications were administered in the Emergency Department. See MAR. Independent interpretation of the following test(s) in the Emergency Department monitor technician: rate is 85 beats/min, Rhythm is normal sinus rhythm, regular, with no ectopy, Interpretation: normal rate, normal rhythm. Care significantly affected by the following chronic conditions: Diabetes, Hypertension, Chronic Obstructive Pulmonary Disease, Asthma. Counseling: I had a detailed discussion with the patient and/or guardian regarding: the historical points, exam findings, and any diagnostic results supporting the discharge/admit diagnosis, lab results, radiology results, the need for outpatient follow up, to return to the emergency department if symptoms worsen or persist or if there are any questions or concerns that arise at home. Response to treatment: the patient's symptoms have resolved after treatment, the patient is not short of breath, wheezing has resolved, and as a result, I will discharge patient. Special discussion: I discussed with the patient/guardian in detail that at this point there is no indication for admission to the hospital. It is understood, however, that if the symptoms persist or worsen the patient needs to return immediately for re-evaluation. 05/03 07:49 Order name: Basic Metabolic Panel; Complete Time: 08:25 bp 05/03 07:49 Order name: CBC with Diff; Complete Time: 08:25 bp 05/03 07:49 Order name: NT PRO-BNP; Complete Time: 08:25 bp 05/03 07:49 Order name: Troponin HS; Complete Time: 08:25 bp 05/03 07:49 Order name: XRAY Chest (1 view); Complete Time: 09:27 bp 05/03 07:49 Order name: EKG; Complete Time: 07:50 bp 05/03 07:49 Order name: Cardiac monitoring; Complete Time: 07:49 bp 05/03 07:49 Order name: EKG - Nurse/Tech; Complete Time: 07:49 bp 05/03 07:49 Order name: IV Saline Lock; Complete Time: 07:49 bp 05/03 07:49 Order name: Labs collected and sent; Complete Time: 07:49 bp 05/03 07:49 Order name: O2 Per Protocol; Complete Time: 07:49 bp 05/03 07:49 Order name: O2 Sat Monitoring; Complete Time: 07:49 bp EC:10 Rate is 73 beats/min. Rhythm is regular. QRS [place] is Normal. CO interval is normal. QRS ms3 interval is normal. Clinical impression: NSR w/ Non-specific ST/T Changes. Interpreted by me. Reviewed by me. Administered Medications: 08:36 Drug: Albuterol Inhalation 2.5 mg Route: Inhalation; bp 08:37 Drug: Albuterol Inhalation 2.5 mg Route: Inhalation; bp Disposition Summary: 05/03/23 09:34 Discharge Ordered Location: Home ms3 Condition: Stable ms3 Diagnosis - COPD/ Chronic obstructive pulmonary disease with (acute) exacerbation ms3 - Wheezing ms3 - Essential (primary) hypertension ms3 Followup: ms3 - With: Javon Oates DO - When: 2 - 3 days - Reason: Recheck today's complaints Discharge Instructions: - Discharge Summary Sheet ms3 - Hypertension, Adult ms3 - COPD and Physical Activity ms3 Forms: - Medication Reconciliation Form ms3 - Thank You Letter ms3 - Antibiotic Education ms3 - Prescription Opioid Use ms3 Prescriptions: - albuterol sulfate 90 mcg/actuation Inhalation HFA Aerosol Inhaler - inhale 2 puff by INHALATION route every 4 hours as needed for shortness of ms3 breath or wheezing; 1 unit; Refills: 0, Product Selection Permitted - Prednisone 20 mg Oral Tablet - take 2 tablets by ORAL route once daily for 5 days; 10 tablet; Refills: 0, ms3 Product Selection Permitted Signatures: Dispatcher [employer] EDBrooke Gordon RN RN ph Leopoldo Gallegos RN RN Nicholas Blount, DO ms3 Corrections: (The following items were deleted from the chart) 08:26 08:11 Constitutional: This is a well developed, well nourished patient who is awake, ms3 alert, and in no acute distress. Head/Face: Normocephalic, atraumatic. Neck: Trachea midline, no cervical lymphadenopathy. Supple, full range of motion without nuchal rigidity, or vertebral point tenderness. No Meningismus. Chest/axilla: Normal chest wall appearance and motion. Nontender with no deformity. Cardiovascular: Regular rate and rhythm with a normal S1 and S2. No gallops, murmurs, or rubs. Normal PMI, no JVD. No pulse deficits. Respiratory: Lungs have equal breath sounds bilaterally, clear to auscultation and percussion. No rales, rhonchi or wheezes noted. No increased work of breathing, no retractions or nasal flaring. Abdomen/GI: Soft, non-tender, with normal bowel sounds. No distension or tympany. No guarding or rebound. No evidence of tenderness throughout. Skin: Warm, dry with normal turgor. Normal color with no rashes, no lesions, and no evidence of cellulitis. MS/ Extremity: Pulses equal, no cyanosis. Neurovascular intact. Full, normal range of motion. ms3
[2023-05-03 09:54] VITALS: TEMP 97.8
[2023-05-03 09:56] VITALS: BP 159/84; O2SAT 95
--- NOTE | 2023-05-04 08:20 | EKG ---
Test Date: 2023-05-03 Test Time: 07:39:03 Head Of History: KIMBERLEY MEASUREMENT RESULTS: Intervals: Rate: 73 CA: 158 QRSD: 102 QT: 406 QTc: 447 [place]: P: 26 CA: 158 QRS: 23 T: 127 INTERPRETIVE STATEMENTS: Normal sinus rhythm Septal infarct, age undetermined ST & T wave abnormality, consider lateral ischemia Abnormal ECG Compared to ECG 04/07/2023 09:51:29 No significant changes Electronically Signed On 05-04-23 08:17:41 CDT by Reynaldo Olivas
== END 2023-05-03 09:46 | disposition home or self-care (01) ==
LOC: ER 07:34
DX: J44.1 Chronic obstructive pulmonary disease with (acute) exacerbation (principal); I10 Essential (primary) hypertension; E11.9 Type 2 diabetes mellitus without complications; F17.210 Nicotine dependence, cigarettes, uncomplicated
CPT/HCPCS: 93005; 85025; 80048; 36415; 84484; 83880; 71045; 99284; J7613

== ENCOUNTER 2023-07-03 15:12 | Emergency (ER) | payer OTHER ==
[2023-07-03] MEDS ORDERED: ALBUTEROL 2.5 MG/3 ML NEB SOL ONE (15:33)
[2023-07-03] MEDS ORDERED: ONDANSETRON 4 MG (ODT) TAB ONE (15:36)
--- NOTE | 2023-07-03 15:59 | ER ---
Nurse's Notes [facility] Name: Chris Jama Age: 53 yrs Sex: Male : 1970 Arrival Date: 07/03/2023 Time: 15:12 Bed 15 Private MD: Diagnosis: Unspecified asthma with (acute) exacerbation Presentation: 07/03 15:17 Chief complaint: EMS states: SOB upon waking today. Hx of asthma, out of albuterol neb hb and inhaler. 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 Coronavirus screen: Client presents with at least one sign or symptom that may indicate coronavirus-19. Provider contacted for isolation considerations. Ebola Screen: No symptoms or risks identified at this time. Initial Sepsis Screen: Does the patient meet any 2 criteria? No. Patient's initial sepsis screen is negative. Does the patient have a suspected source of infection? No. Patient's initial sepsis screen is negative. Risk Assessment: Do you want to hurt yourself or someone else? Patient reports no desire to harm self or others. Onset of symptoms was July 03, 2023. 15:17 Method Of Arrival: EMS: [facility] 15:17 Acuity: JAELYN 3 hb Triage Assessment: 15:19 General: Appears in no apparent distress. Behavior is calm, cooperative. Pain: Denies hb pain. EENT: No signs and/or symptoms were reported regarding the EENT system. Neuro: Level of Consciousness is awake, alert, obeys commands, Oriented to person, place, time, situation. Cardiovascular: Patient's skin is warm and dry. Respiratory: Respiratory effort is mildly labored Respiratory pattern is tachypnea. GI: No signs and/or symptoms were reported involving the gastrointestinal system. : No signs and/or symptoms were reported regarding the genitourinary system. Derm: Skin is pink, warm \T\ dry. Musculoskeletal: No signs and/or symptoms reported regarding the musculoskeletal system. Historical: - Allergies: 15:19 NKDA; hb - Home Meds: 15:19 Albuterol Inhl [Active]; lisinopril 20 mg Oral tab 1 tab once daily [Active]; metformin hb 500 mg Oral tr24 1 tab once daily [Active]; - PMHx: 15:19 Asthma; COPD; Diabetes - NIDDM; Gout; Hypertension; hb - PSHx: 15:19 None; hb - Immunization history:: Adult Immunizations up to date. - Social history:: Smoking status: . Screenin:21 [facility] ED Fall Risk Assessment (Adult) Score/Fall Risk Level 0 - 2 = Low Risk hb Oriented to surroundings, Maintained a safe environment. Abuse screen: Denies threats or abuse. Denies injuries from another. Nutritional screening: No deficits noted. Tuberculosis screening: No symptoms or risk factors identified. Assessment: 15:21 General: See triage assessment . hb 16:12 Reassessment: Patient appears in no apparent distress at this time. Patient and/or hb family updated on plan of care and expected duration. Pain level reassessed. Patient is alert, oriented x 3, equal unlabored respirations, skin warm/dry/pink. 16:17 Reassessment: Patient appears in no apparent distress at this time. Patient and/or hb family updated on plan of care and expected duration. Pain level reassessed. Patient is alert, oriented x 3, equal unlabored respirations, skin warm/dry/pink. Patient states feeling better. Patient states symptoms have improved. Vital Signs: 15:17 BP 144 / 90; Pulse 89; Resp 22; Temp 98.6(O); Pulse Ox 93% on R/A; Weight 90.72 kg; hb Height 5 ft. 9 in. ; Pain 0/10; 16:15 Pulse 89; Resp 17; Pulse Ox 99% on R/A; hb 15:17 Body Mass Index 29.53 (90.72 kg, 175.26 cm) hb 15:17 Pain Scale: Adult hb ED Course: 15:17 Patient arrived in ED. hb 15:17 Steffi Newton FNP-C is PHCP. kb 15:17 Noam Taylor MD is Attending Physician. kb 15:19 Triage completed. hb 15:19 Arm band placed on. hb 15:21 Patient has correct armband on for positive identification. Bed in low position. Call hb light in reach. Provided Education on: . 15:34 Amy Beth, RN is Primary Nurse. hb 16:12 No provider procedures requiring assistance completed. Patient did not have IV access hb during this emergency room visit. Administered Medications: 15:34 Drug: Albuterol Inhalation 2.5 mg Route: Inhalation; hb 16:15 Follow up: Response: No adverse reaction hb 15:34 Drug: Ondansetron Oral Disintegrating Tablet Oral Disintegrating Tablet 4 mg Route: PO; hb 16:15 Follow up: Response: No adverse reaction hb Medication: 15:21 VIS not applicable for this client. hb Point of Care Testing: Blood Glucose: 15:35 Blood Glucose: 181 mg/dL; hb Ranges: Outcome: 15:58 Discharge ordered by . leah 16:15 Discharged to home ambulatory. hb 16:15 Condition: stable 16:15 Discharge instructions given to patient, Instructed on discharge instructions, follow up and referral plans. medication usage, Demonstrated understanding of instructions, follow-up care, medications, Prescriptions given X 2. 16:18 Patient left the ED. hb Signatures: Steffi Newton, CLAY TRANSPORTER-C CLAY TRANSPORTER-Amy Cason, RN RN hb
--- NOTE | 2023-07-03 15:59 | EDPHYS ---
Physician Documentation [facility] Name: Chris Jama Age: 53 yrs Sex: Male : 1970 Arrival Date: 07/03/2023 Time: 15:12 Bed 15 Private MD: ED Physician Noam Taylor HPI: 07/03 17:52 This 53 yrs old Male presents to ER via EMS with complaints of Asthma Exacerbation. kb 17:52 The patient presents to the emergency department with wheezing, Current therapy: kb albuterol inhaler, albuterol nebs. Onset: The symptoms/episode began/occurred this morning. Modifying factors: The symptoms are alleviated by nothing, the symptoms are aggravated by nothing. Associated signs and symptoms: The patient has no apparent associated signs or symptoms. Severity of symptoms: At their worst the symptoms were moderate in the emergency department the symptoms have improved. The patient has experienced similar episodes in the past. The patient has not recently seen a physician. Pt reports he has had asthma since childhood and has to use albuterol daily. States he ran out of his albuterol and was wheezing with shortness of breath so he called 911. EMS reports audible wheezing upon their arrival, duoneb given in route. Breath sounds now clear. . Historical: - Allergies: 15:19 NKDA; hb - Home Meds: 15:19 Albuterol Inhl [Active]; lisinopril 20 mg Oral tab 1 tab once daily [Active]; metformin hb 500 mg Oral tr24 1 tab once daily [Active]; - PMHx: 15:19 Asthma; COPD; Diabetes - NIDDM; Gout; Hypertension; hb - PSHx: 15:19 None; hb - Immunization history:: Adult Immunizations up to date. - Social history:: Smoking status: . ROS: 17:51 Constitutional: Negative for fever, chills, and weight loss. kb 17:51 Respiratory: Positive for shortness of breath, wheezing. 17:51 All other systems are negative. Exam: 17:51 Constitutional: This is a well developed, well nourished patient who is awake, alert, kb and in no acute distress. Head/Face: Normocephalic, atraumatic. ENT: Moist Mucous membranes Cardiovascular: Regular rate and rhythm with a normal S1 and S2. No gallops, murmurs, or rubs. No pulse deficits. Respiratory: Respirations even and unlabored. No increased work of breathing. Talking in full sentences Abdomen/GI: Soft, non-tender. No distention Skin: Warm, dry with normal turgor. Normal color. MS/ Extremity: Pulses equal, no cyanosis. Neurovascular intact. Full, normal range of motion. Neuro: Awake and alert, GCS 15, oriented to person, place, time, and situation. Moves all extremities. Normal gait. Vital Signs: 15:17 BP 144 / 90; Pulse 89; Resp 22; Temp 98.6(O); Pulse Ox 93% on R/A; Weight 90.72 kg; hb Height 5 ft. 9 in. ; Pain 0/10; 16:15 Pulse 89; Resp 17; Pulse Ox 99% on R/A; hb 15:17 Body Mass Index 29.53 (90.72 kg, 175.26 cm) hb 15:17 Pain Scale: Adult hb MDM: 15:17 Patient medically screened. kb 17:53 Differential diagnosis: acute asthma, URI. Antibiotic administration: Not indicated. kb Data reviewed: vital signs, nurses notes. Test considered but Not performed: X-ray: chest x-ray considered, but lungs clear bilaterally. o2 sat 99% on room air. Resp even and unlabored. . Historians other than the Patient: EMS: [facility]. Counseling: I had a detailed discussion with the patient and/or guardian regarding: the historical points, exam findings, and any diagnostic results supporting the discharge/admit diagnosis, the need for outpatient follow up, a family practitioner, to return to the emergency department if symptoms worsen or persist or if there are any questions or concerns that arise at home. 07/03 15:45 Order name: Glucose, Ancillary Testing; Complete Time: 15:58 EDMS Administered Medications: 15:34 Drug: Albuterol Inhalation 2.5 mg Route: Inhalation; hb 16:15 Follow up: Response: No adverse reaction hb 15:34 Drug: Ondansetron Oral Disintegrating Tablet Oral Disintegrating Tablet 4 mg Route: PO; hb 16:15 Follow up: Response: No adverse reaction hb Point of Care Testing: Blood Glucose: 15:35 Blood Glucose: 181 mg/dL; hb Ranges: Critical Glucose Levels:Adult <50 mg/dl or >400 mg/dl <40 mg/dl or >180 mg/dl Disposition Summary: 07/03/23 15:58 Discharge Ordered Location: Home kb Condition: Stable kb Diagnosis - Unspecified asthma with (acute) exacerbation kb Followup: kb - With: Emergency Department - When: As needed - Reason: Worsening of condition Followup: kb - With: Private Physician - When: 2 - 3 days - Reason: Recheck today's complaints, Continuance of care, Re-evaluation by your physician Discharge Instructions: - Discharge Summary Sheet kb - Asthma, Adult, [id number] kb Forms: - Medication Reconciliation Form kb - Thank You Letter kb - Antibiotic Education kb - Prescription Opioid Use kb - Patient Portal Instructions kb - Leadership Thank You Letter kb Prescriptions: - albuterol sulfate 90 mcg/actuation Inhalation HFA Aerosol Inhaler - inhale 2 inhalation by INHALATION route every 4 to 6 hours As needed; 1 unit; kb Refills: 0, Product Selection Permitted - Albuterol Sulfate 2.5 mg /3 mL (0.083 %) Inhalation Solution for Nebulization - inhale 1 unit by NEBULIZATION route every 8 hours As needed dispense one box; 1 kb Unspecified; Refills: 0, Product Selection Permitted Signatures: Steffi Newton, CARTOGRAPHIC ENGINEER-C CARTOGRAPHIC ENGINEER-Ckb Amy Beth, RN RN
[2023-07-03 17:00] VITALS: BP 144/90; TEMP 98.6
[2023-07-03 17:01] VITALS: O2SAT 99
== END 2023-07-03 16:18 | disposition home or self-care (01) ==
LOC: ER 15:12
DX: J45.901 Unspecified asthma with (acute) exacerbation (principal); E11.9 Type 2 diabetes mellitus without complications; I10 Essential (primary) hypertension
CPT/HCPCS: 82947; 99284; Q0162; J7613

== ENCOUNTER 2025-01-15 00:19 | Emergency (ER) | payer OTHER, SELFPAY ==
--- OUTSIDE RECORDS SUMMARY | 2025-01-15 00:22 | XMS REPORT | Continuity of Care Document ---
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 Tender Name Role Phone MALACHI SCOTT Attending Clinician Unavailable ASHUTOSH CARDOZA Attending Clinician JUANJOSE Hoffmann Attending Clinician Pattie ROSENDO Trevizo Attending Clinician Unavailable PEDRO LUIS PÉREZ Attending Clinician Unavailable MD AMBER Attending Clinician UnavailMELYSSA Patel Attending Clinician Unavailable WILTON ROGERS Attending Clinician UnaDARCY Thorpe Attending Clinician Unavailable Payers Payer Name Policy Type Policy Number Effective Date Expirati on Date Source 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 ON 9 [id number] 2022 00:00:00 AETNA [facility] 2 [id number] 2023 00:00:00 Problems Condition Name Condition Details Condition Category Status Onset Date Resolution Date Last Treatment Date Treating Clinician Comments Source COPD with acute exacerbati on (multi HCC) COPD with acute exacerbati on (multi HCC) Disease Active 11-23 00:00: 00 Jeanette Perez - Externa l Asthma (HHS-HCC) Asthma (HHS-HCC) Disease Active 07-03 00:00: 00 Jeanette Perez - Externa l Type 2 diabetes mellitus without complicati on (multi HCC) Type 2 diabetes mellitus without complicati on (multi HCC) Disease Active 07-03 00:00: 00 Jeanette Mckeeold - Externa l Social History Social Habit Start Date Stop Date Quantity Comments Source History of tobacco use Cigarette Smoker Jeanette reynolds - External Gender identity Hazel Perez - External Sexual orientation Kendell Perez - External Alcohol intake 2024-02-14 00:00:00 2024-02-14 00:00:00 .57 /d Jeanette Perez - External Alcoholic beverage intake 2024-02-14 00:00:00 2024-02-14 00:00:00 .57 /d Jeanette Perez - External History of Social function 2023-08-08 00:00:00 2023-08-08 00:00:00 Jeanette Perez - External Tobacco use and exposure 2023-07-07 00:00:00 2023-07-07 00:00:00 Smokeless tobacco non-user Jeanette Perez - External Tobacco Comment 2023-07-07 00:00:00 2023-07-07 00:00:00 Down to 3 cigarettes a day Jeanette Perez - External Cigarettes smoked current (pack per day) - Reported 2023-07-07 00:00:00 2023-07-07 00:00:00 Jeanette Perez - External Sex assigned at 1970 00:00:00 1970 00:00:00 Jeanette Perez - External Smoking Status Start Date Stop Date Source Tobacco smoking consumption unknown Jeanette Rosas Ext ernal Smokes tobacco daily 2023-07-07 00:00:00 Jeanette Perez - External Medications Ordered Medication Name Filled Medication Name Start Date Stop Date Current Medication? Ordering Clinician Indication Dosage Frequency Signature (SIG) Comments Components Source Albuterol HFA 108 (90 Base) MCG/ACT IN AERS 02-13 00:00: 00 Yes [id number] INHALE 2 PUFFS BY MOUTH EVERY 4 HOURS NEEDED SHORTNESS OF BREATH OR WHEEZING. Jeanette Prather l Benzonatate (Tessalon Perles) 100 MG oral Capsule 02-13 00:00: 00 Yes [id number] 100mg [id number] 3D Take 1 capsule (100 mg total) by mouth 3 times daily as needed for cough. Jeanette Rosas Externa l Albuterol HFA 108 (90 Base) MCG/ACT IN AERS 11-23 00:00: 00 Yes [id number] INHALE 2 PUFFS BY MOUTH EVERY 4 HOURS NEEDED SHORTNESS OF BREATH OR WHEEZING. Jeanette ward Mometasone Furo-Formot am[place] Fum (Dulera) 200-5 MCG/ACT inhalation Aerosol 11-23 00:00: 00 Yes [id number] USE 1 PUFF TWICE A DAY. Jeanette ward Mometasone Furo-Formot america Fum (Dulera) 200-5 MCG/ACT inhalation Aerosol 2022-11 0-19 00:00: 00 11-23 00:00 :00 No [id number] USE 1 PUFF TWICE A DAY. Jeanette ward Mometasone Furo-Formot america Fum 200-5 MCG/ACT inhalation Aerosol 07-25 00:00: 00 Yes [id number] TWICE DAILY. NO REFILLS,NE ED APPOINTMEN T FOR ANY REFILLS. Jeanette ward Benzonatate 100 MG oral Capsule 07-25 00:00: 00 Yes [id number] 100mg Q.[id number] 3D Take 1 capsule (100 mg total) by mouth 3 times daily as needed for cough. Jeanette ward Albuterol HFA 108 (90 Base) MCG/ACT IN AERS 07-25 00:00: 00 11-23 00:00 :00 No [id number] INHALE 2 PUFFS BY MOUTH EVERY 4 HOURS NEEDED SHORTNESS OF BREATH OR WHEEZING. Jeanette ward predniSONE (DELTASONE) 10 MG oral tablet 07-25 00:00: 00 07-31 04:59 :00 No [id number] 30mg Take 3 tablets (30 mg total) by mouth daily for 5 days Take with food. Jeanette ward Respiratory Therapy Supplies (Nebulizer/ Tubing/Mout hpiece) does not apply Kit 07-04 00:00: 00 Yes [id number] Use as prescribed . Jeanette ward Doxycycline Hyclate 100 MG oral Tablet 07-04 00:00: 00 Yes [id number] 100mg Take 1 tablet (100 mg total) by mouth 2 times daily Jeanette ward Doxycycline Hyclate 100 MG oral Capsule 07-04 00:00: 00 Yes 100mg Take 1 capsule (100 mg total) by mouth 2 times daily. Jeanette ward Doxycycline Hyclate 100 MG oral Tablet 07-03 00:00: 00 Yes [id number] 100mg Take 1 tablet (100 mg total) by mouth 2 times daily Jeanette ward Respiratory Therapy Supplies (Nebulizer/ Tubing/Mout hpiece) does not apply Kit 07-03 00:00: 00 Yes [id number] Use as prescribed . Jeanette ward Albuterol HFA 108 (90 Base) MCG/ACT IN AERS 05-04 00:00: 00 07-25 00:00 :00 No INHALE 2 PUFFS BY MOUTH EVERY 4 HOURS NEEDED SHORTNESS OF BREATH OR WHEEZING Jeanette ward Mometasone Furo-Formot america Fum 200-5 MCG/ACT inhalation Aerosol 2021-11 00:00: 00 07-25 00:00 :00 No TWICE DAILY Jeanette ward Albuterol (PROVENTIL) (2.5 MG/3ML) 0.083% inhalation Inhalant Solution 2021-11 00:00: 00 Yes 2.5mg 2.5 mg. Jeanette ward Encounters Start Date/Time End Date/Time Encounter Type Admission Type Attending [facility] Facility Care Department Encounter ID Source 2024-09-11 00:00:00 2024-09-11 00:00:00 Outpatient MALACHI SCOTT [id number] Jeanette Perez 2024-03-20 15:00:00 2024-03-20 15:00:00 Outpatient ASHUTOSH CARDOZA [id number] Jeanette Perez 2024-03-17 10:30:00 2024-03-17 10:30:00 Outpatient JUANJOSE CORBIN [id number] Jeanette Perez 2024-03-10 11:10:00 2024-03-10 11:10:00 Outpatient ROSENDO ALMONTE [id number] Jeanette Perez 2024-02-14 10:30:00 2024-02-14 10:30:00 Outpatient MALACHI SCOTT JEANETTE KHAN [id number] [facility] 2023-11-23 15:00:00 2023-11-23 15:00:00 Outpatient BETOPEDRO LUIS JEANETTE KHAN [id number] [facility] 2023-11-23 00:00:00 2023-11-23 00:00:00 Outpatient MD JEANETTE PRADO [id number] Jeanette [facility] 2023-10-20 00:00:00 2023-10-20 00:00:00 Outpatient ANDRIY EASTONReny KHAN [id number] Jeanette [facility] 2023-09-08 00:00:00 2023-09-08 00:00:00 Outpatient AARON EASTONASHLEY KHAN [id number] [facility] 2023-07-25 14:05:00 2023-07-25 14:05:00 Outpatient MELYSSA EASTON JEANETTE KHAN [id number] [facility] 2023-07-25 14:05:00 2023-07-25 14:05:00 Outpatient AARON EASTONASHLEY KHAN [id number] [facility] 2023-07-18 14:30:00 2023-07-18 14:30:00 Outpatient WILTON ROGERS [id number] [facility] 2023-07-08 14:30:00 2023-07-08 14:30:00 Outpatient WILTON ROGERS [id number] [facility] 2023-07-04 00:00:00 2023-07-04 00:00:00 Outpatient MD JEANETTE PRADO [id number] [facility] 2023-07-04 00:00:00 2023-07-04 00:00:00 Outpatient DARCY MATTHEW [id number] [facility] 2023-07-03 20:15:00 2023-07-03 20:15:00 Outpatient DARCY MATTHEW [id number] Jeanette Perez 2023-07-03 20:15:00 2023-07-03 20:15:00 Outpatient DARCY MATTHEW [id number] Jeanette Perez
[2025-01-15] MEDS ORDERED: LABETALOL 20 MG/4ML SYRINGE IV ONE (00:42)
[2025-01-15] MEDS ORDERED: IPRATROPIUM BROM 0.5MG/2.5ML ONE (00:59)
[2025-01-15] MEDS ORDERED: INSULIN REGULAR (HUMAN) 100 UNIT/ML ONE (00:59)
[2025-01-15] MEDS ORDERED: ALBUTEROL 2.5 MG/3 ML NEB SOL ONE (00:59)
[2025-01-15 01:21] LABS: Absolute Eosinophils 0.1 K/uL (0-0.5); Absolute Lymphocytes (CBC) 2.8 K/uL (0.7-4.9); Absolute Monocytes 0.6 K/uL (0.1-1.3); Absolute Neutrophil 6.5 K/uL (1.8-8.0); Basophils % 0.4 % (0-1.3); Eosinophils % 1.3 % (0-4.4); Hematocrit 38.2 % (39.6-49.0); Hemoglobin 13.2 g/dL (13.6-17.9); MCH 30.4 pg (27.0-35.0); MCHC 34.6 g/dL (32.0-36.0); MPV 9.3 fL (7.6-11.3); Monocytes % 6.3 % (3.3-12.3); Platelets 186 thou/uL (152-406); RBC Red Blood Cell Count 4.34 M/uL (4.33-5.43); Red Cell Distribution Width 13.4 % (12.1-15.2)
[2025-01-15 01:35] LABS: Anion Gap 12.9 mEq/L (5.0-15.0); Potassium 3.9 mEq/L (3.5-5.1); Troponin High Sensitivity 24.7 pg/mL (<58.9)
--- NOTE | 2025-01-15 02:05 | RAD REPORT ---
EXAM DESCRIPTION: CT of the head without contrast CLINICAL HISTORY: HTN headache COMPARISON: 12/09/2017 TECHNIQUE: Axial CT of the head obtained from the skull apex to the skull base without contrast. This exam was performed according to our departmental dose-optimization program, which includes automated exposure control, adjustment of the mA and/or kV according to patient size and/or use of it erative reconstruction technique. FINDINGS: No acute intracranial hemorrhage identified. No mass, mass effect, shift of the midline, abnormal ext ra-axial fluid collection or CT evidence of acute ischemic change identified. The ventricular system and sulcal spaces are mildly enlarged compatible with mild cerebral atrophy. Scattered areas of hypodensity throughout the supratentorial white matter are nonspecific and may be related to chronic small vessel ischemic change. The visualized paranasal sinuses and the mastoids are clear. No skull fracture identified. Visualiz ed orbits and globes are unremarkable. Atherosclerotic calcification of the intracranial internal carotid and vertebral arteries. IMPRESSION: 1. No acute intracranial abnormality by CT criteria. Electronically signed by: Eduard Bautista DO 01/15/2025 02:00 AM [facility] 4ZDM Due to temporary technical issues with the PACS/FreeBrie reporting system, reports are being forest d by the in-house radiologist without review as a courtesy to ensure prompt reporting the interpreting radiologist is fully responsible for the content of the report. Transcribed Date/Time: 01/15/2025 2:04 AM
--- NOTE | 2025-01-15 02:17 | ER ---
Nurse's Notes [facility] [place] [place] [facility] Name: Chris Jama Age: 54 yrs Sex: Male : 1970 Arrival Date: 01/15/2025 Time: 00:19 Bed 20 Private MD: Diagnosis: Hyperglycemia, headache, hypertension Presentation: 01/15 00:37 Chief complaint: EMS states: Pt called EMS reporting headache, tingling in arms and jb4 left fingers, numbness of the face. BGL 416. Initial systolic pressure in the 200's. Is non compliant with HTN medications. Coronavirus screen: At this time, the client does not indicate any symptoms associated with coronavirus-19. Ebola Screen: No symptoms or risks identified at this time. Initial Sepsis Screen: Does the patient meet any 2 criteria? No. Patient's initial sepsis screen is negative. Does the patient have a suspected source of infection? No. Patient's initial sepsis screen is negative. Risk Assessment: Do you want to hurt yourself or someone else? Patient reports no desire to harm self or others. Onset of symptoms was January 15, 2025. Transition of care: patient was not received from another setting of care. 00:37 Method Of Arrival: EMS: [facility] jb4 00:37 Acuity: JAELYN 3 jb4 Historical: - Allergies: 00:40 NKDA; jb4 - PMHx: 00:40 Asthma; COPD; Diabetes - NIDDM; Gout; Hypertension; jb4 Screenin:32 [facility] ED Fall Risk Assessment (Adult) History of falling in the last 3 months, jb4 including since admission No falls in past 3 months (0 pts) Confusion or Disorientation No (0 pts) Intoxicated or Sedated No (0 pts) Impaired Gait No (0 pts) Mobility Assist Device Used No (0 pt) Altered Elimination No (0 pt) Score/Fall Risk Level 0 - 2 = Low Risk Oriented to surroundings, Maintained a safe environment. Abuse screen: Denies threats or abuse. Nutritional screening: No deficits noted. Tuberculosis screening: No symptoms or risk factors identified. Assessment: 00:40 General: Appears in no apparent distress. comfortable, Behavior is calm, cooperative, jb4 appropriate for age. Pain: Denies pain. Neuro: Level of Consciousness is awake, alert, obeys commands, Oriented to person, place, time, situation. Cardiovascular: Patient's skin is warm and dry. Respiratory: Airway Respiratory effort is even, unlabored, Respiratory pattern is regular, symmetrical, Auditory wheezing noted. Derm: Skin is intact, Skin is pink, warm \T\ dry. Musculoskeletal: Circulation, motion, and sensation intact. Range of motion: intact in all extremities. 02:32 Reassessment: Patient appears in no apparent distress at this time. Patient and/or jb4 family updated on plan of care and expected duration. Pain level reassessed. Patient is alert, oriented x 3, equal unlabored respirations, skin warm/dry/pink. Patient states feeling better. Vital Signs: 00:37 BP 177 / 88; Pulse 103; Resp 16; Pulse Ox 99% on R/A; Weight 90.72 kg; Height 5 ft. 11 jb4 in. ; Pain 8/10; 02:32 BP 157 / 80; Pulse 89; Resp 16; Pulse Ox 96% on R/A; jb4 00:37 Body Mass Index 27.89 (90.72 kg, 180.34 cm) jb4 00:37 Pain Scale: Adult jb4 ED Course: 00:20 Patient arrived in ED. rv1 00:20 Cecilio Oates MD is Attending Physician. sp3 00:40 Triage completed. jb4 00:40 Arm band placed on right wrist. jb4 01:10 CT Head Brain wo Cont In Process Unspecified. EDMS 02:32 Patient has correct armband on for positive identification. Bed in low position. Call jb4 light in reach. Side rails up X 1. Provided Education on: discharge instructions.. 02:32 No provider procedures requiring assistance completed. IV discontinued, intact, jb4 bleeding controlled, No redness/swelling at site. Pressure dressing applied. Administered Medications: 00:45 Drug: DuoNeb Nebulize (3:1) (2.5 mg - 0.5 mg) 3 ml Nebulizer once Route: Nebulizer; jb4 02:36 Follow up: Response: No adverse reaction; Marked relief of symptoms jb4 00:48 Drug: Labetalol IV 10 mg IV at calculated rate once Route: IV; Rate: calculated rate; jb4 Site: left antecubital; 02:36 Follow up: Response: No adverse reaction; Marked relief of symptoms jb4 01:02 Drug: Insulin Regular Human IVP 10 units IVP once {Co-Signature: kristen (Jama Perez RN).} Route: IVP; Site: left antecubital; 02:36 Follow up: Response: No adverse reaction; Marked relief of symptoms jb4 Outcome: 02:16 Discharge ordered by . lul 02:32 Discharged to home ambulatory, jb4 02:32 Condition: stable 02:32 Discharge instructions given to patient, Instructed on discharge instructions, follow up and referral plans. medication usage, Demonstrated understanding of instructions, follow-up care, medications, Prescriptions given X 2, 02:36 Patient left the ED. jb4 Signatures: Dispatcher [employer] EDMS Ant Davis, RN RN jb4 Cecilio Oates MD MD sp3 Apple Darby rv1 Jama Perez RN
--- NOTE | 2025-01-15 02:17 | EDPHYS ---
Physician Documentation [facility] Name: Chris Jama Age: 54 yrs Sex: Male : 1970 Arrival Date: 01/15/2025 Time: 00:19 Bed 20 Private MD: ED Physician Cecilio Oates HPI: 01/15 01:00 This 54 yrs old Male presents to ER via EMS with complaints of headache, cough, high sp3 sugar. 01:00 54-year-old male with history of asthma, COPD, diabetes, hypertension who has not seen sp3 a doctor in 3 years and states he is not on any medications due to insurance issues and transportation issues now presents to the ED with chief complaint headache, cough and EMS found hyperglycemia greater than 400. Patient states his blood pressure was elevated and he had a headache. Headache has improved spontaneously. He also has had a cough and wheezing. He denies any fever, neck pain, chest pain, shortness of breath, abdominal pain, vomit, diarrhea, syncope, near syncope, focal neurological deficit, difficulty ambulating, or any other signs or symptoms on ROS at this time.. Historical: - Allergies: 00:40 NKDA; jb4 - PMHx: 00:40 Asthma; COPD; Diabetes - NIDDM; Gout; Hypertension; jb4 ROS: 01:02 Constitutional: Negative for fever, chills, and weight loss, Eyes: Negative for injury, sp3 pain, redness, and discharge, ENT: Negative for injury, pain, and discharge, Neck: Negative for injury, pain, and swelling, Cardiovascular: Negative for chest pain, palpitations, and edema, Abdomen/GI: Negative for abdominal pain, nausea, vomiting, diarrhea, and constipation, Back: Negative for injury and pain, MS/Extremity: Negative for injury and deformity, Skin: Negative for injury, rash, and discoloration, Allergy/Immunology: Negative for hives, rash, and allergies, Hematologic/Lymphatic: Negative for swollen nodes, abnormal bleeding, and unusual bruising, 01:02 All other systems are negative, Exam: 01:02 Constitutional: This is a well developed, well nourished patient who is awake, alert, sp3 and in no acute distress. Head/Face: Normocephalic, atraumatic. Eyes: Pupils equal round and reactive to light, extra-ocular motions intact. Lids and lashes normal. Conjunctiva and sclera are non-icteric and not injected. Cornea within normal limits. Periorbital areas with no swelling, redness, or edema. ENT: Nares patent. No nasal discharge, no septal abnormalities noted. External auditory canals are clear. Oropharynx with no redness, swelling, or masses, exudates, or evidence of obstruction, uvula midline. Mucous membranes moist. Neck: Trachea midline, no thyromegaly or masses palpated, and no cervical lymphadenopathy. Supple, full range of motion without nuchal rigidity, or vertebral point tenderness. No Meningismus. Chest/axilla: Normal chest wall appearance and motion. Nontender with no deformity. No lesions are appreciated. Cardiovascular: Regular rate and rhythm with a normal S1 and S2. No gallops, murmurs, or rubs. Normal PMI, no JVD. No pulse deficits. Abdomen/GI: Soft, non-tender, with normal bowel sounds. No distension or tympany. No guarding or rebound. No evidence of tenderness throughout. Back: No spinal tenderness. No costovertebral tenderness. Full range of motion. Skin: Warm, dry with normal turgor. Normal color with no rashes, no lesions, and no evidence of cellulitis. MS/ Extremity: Pulses equal, no cyanosis. Neurovascular intact. Full, normal range of motion. Neuro: Awake and alert, GCS 15, oriented to person, place, time, and situation. Cranial nerves II-XII grossly intact. Motor strength 5/5 in all extremities. Sensory grossly intact. Cerebellar exam normal. Normal gait. Psych: Awake, alert, with orientation to person, place and time. Behavior, mood, and affect are within normal limits. 01:02 Respiratory: Wheezing noted bilaterally mild in nature. Mild active cough. Blood pressure 177/88 with heart rate in the 90-100 range. Breathing at 16 breaths/min 9 9% room air., 01:08 ECG was reviewed by the Attending Physician. EKG demonstrates normal sinus rhythm at 88 sp3 bpm with normal intervals, normal QRS nonspecific diffuse ST's ST changes without evidence of acute ischemia. Vital Signs: 00:37 BP 177 / 88; Pulse 103; Resp 16; Pulse Ox 99% on R/A; Weight 90.72 kg; Height 5 ft. 11 jb4 in. ; Pain 8/10; 02:32 BP 157 / 80; Pulse 89; Resp 16; Pulse Ox 96% on R/A; jb4 00:37 Body Mass Index 27.89 (90.72 kg, 180.34 cm) jb4 00:37 Pain Scale: Adult jb4 MDM: 00:20 Medical Screening Exam initiated sp3 01:03 Data reviewed: vital signs, nurses notes, EMS record, lab test result(s), EKG, sp3 radiologic studies. ED course: 54-year-old male with PMH above who has been noncompliant on general medical care now presents to the ED with multiple complaints and problems. Differential diagnosis includes hypertension induced headache, viral illness, asthma/COPD exacerbation, hyperglycemia and to a lesser degree early DKA although doubtful. Workup include CT scan of the head, chest x-ray, general labs, labetalol 10 mg IV, insulin 10 units IV, and general supportive care. Will hold on IV fluids given BP and will administer if indicated once labs are reviewed. Disposition probable discharge on oral hypertension medication, metformin and other medications as indicated. I do not believe patient is in hypertensive crisis or in DKA or sepsis.. 02:15 ED course: Blood pressure improved. Headache also improved. Patient is hyperglycemic sp3 and received 10 units of insulin IV. There is no acidosis and the anion gap is normal. We will discharge patient home on lisinopril and metformin with counseling for PCP/clinic follow-up.. 01/15 00:22 Order name: Basic Metabolic Panel; Complete Time: 02:07 sp3 01/15 00:22 Order name: CBC with Diff; Complete Time: 02:07 sp3 01/15 00:22 Order name: Troponin HS; Complete Time: 02:07 sp3 01/15 01:09 Order name: Glucose, Ancillary Testing; Complete Time: 02:07 EDMS 01/15 00:22 Order name: CT Head Brain wo Cont sp3 01/15 00:22 Order name: EKG; Complete Time: 00:22 sp3 01/15 00:22 Order name: Cardiac monitoring; Complete Time: 00:40 sp3 01/15 00:22 Order name: EKG - Nurse/Tech; Complete Time: 00:40 sp3 01/15 00:22 Order name: IV Saline Lock; Complete Time: 00:40 sp3 01/15 00:22 Order name: Labs collected and sent; Complete Time: 00:40 sp3 01/15 00:22 Order name: O2 Sat Monitoring; Complete Time: 00:40 sp3 01/15 00:49 Order name: Accucheck; Complete Time: 01:53 sp3 Administered Medications: 00:45 Drug: DuoNeb Nebulize (3:1) (2.5 mg - 0.5 mg) 3 ml Nebulizer once Route: Nebulizer; jb4 02:36 Follow up: Response: No adverse reaction; Marked relief of symptoms jb4 00:48 Drug: Labetalol IV 10 mg IV at calculated rate once Route: IV; Rate: calculated rate; jb4 Site: left antecubital; 02:36 Follow up: Response: No adverse reaction; Marked relief of symptoms jb4 01:02 Drug: Insulin Regular Human IVP 10 units IVP once {Co-Signature: kristen (Jama Perez RN).} Route: IVP; Site: left antecubital; 02:36 Follow up: Response: No adverse reaction; Marked relief of symptoms jb4 Disposition Summary: 01/15/25 02:16 Discharge Ordered Notes: Location: Home sp3 Condition: Stable sp3 Diagnosis - Hyperglycemia, headache, hypertension sp3 Followup: sp3 - With: Private Physician - When: Upon discharge from the Emergency Department - Reason: Continuance of care Discharge Instructions: - Discharge Summary Sheet sp3 - Hyperglycemia sp3 - Hypertension, Adult sp3 Forms: - Medication Reconciliation Form sp3 - Antibiotic Education sp3 - Prescription Opioid Use sp3 - Patient Portal Instructions sp3 - Leadership Thank You Letter sp3 Prescriptions: - Lisinopril 10 mg Oral Tablet - take 1 tablet ORAL route once daily; 20 tablet; Refills: 0, Product Selection sp3 Permitted - Metformin 1,000 mg Oral Tablet - take 1 tablet ORAL route every 12 hours with morning and evening meals; 20 sp3 tablet; Refills: 0, Product Selection Permitted Signatures: Dispatcher [employer] Ant Hoyt RN RN jb4 Cecilio Oates MD MD sp3 Jama Perez RN Corrections: (The following items were deleted from the chart) 00:22 00:22 Head Brain Wo [id number] ordered. EDMS EDMS
[2025-01-15 02:54] VITALS: BP 157/80; O2SAT 96
== END 2025-01-15 02:36 | disposition home or self-care (01) ==
LOC: ER 00:19
DX: E11.65 Type 2 diabetes mellitus with hyperglycemia (principal); I10 Essential (primary) hypertension
CPT/HCPCS: 36415; 70450; 80048; 82947; 84484; 85025; 93005; J7613; J7644